=== PATIENT | female | born 1965 | race Caucasian/White ===

== ENCOUNTER 2018-02-28 18:31 | Inpatient (IN) | payer BC, OTHER ==
[~2018-02-28] VITALS: Ht 157.5 cm; Wt 39.1 kg
[2018-02-28] MEDS ORDERED: methylPREDNISolone SOD SUCC 125 MG/2 ML VL IV ONE (21:15)
[2018-02-28] MEDS ORDERED: ALBUTEROL SULF 2.5 MG/0.5ML(0.5%) NEB SOLN NEB ONE (21:15)
[2018-02-28] MEDS ORDERED: IPRATROPIUM BROM 0.5 MG/2.5ML INH SOL NEB ONE (21:15)
[2018-02-28] MEDS ORDERED: cefTRIAXone 1GM/10ml IVPUSH 10 ML IV ONE (21:15)
[2018-02-28] MEDS: MAGNESIUM SULFATE 1GM/100ML 100 ML IV SCH ×2 (21:15→23:00)
[2018-02-28 21:27] LABS: Basophils # (auto) 0.1 uL; Basophils % (auto) 1.2 % (0.0-2.0); Eosinophils # (auto) 0.4 uL; Eosinophils % (auto) 4.8 % (0.0-7.0); Hematocrit 46.6 % (36.0-46.0); Hemoglobin 15.7 g/dL (12.2-16.2); Lymphocytes # (auto) 1.8 uL; Lymphocytes % (auto) 20.8 % (10.0-50.0); Mean Corpuscular Hemoglobin 33.6 pg (28.0-32.0); Mean Corpuscular Hgb Conc. 33.7 g/dL (32.0-36.0); Mean Corpuscular Volume 99.7 fL (80.0-100.0); Monocytes # (auto) 0.7 uL; Monocytes % (auto) 8.1 % (0.0-12.0); Neutrophils # (auto) 5.8 uL; Neutrophils % (auto) 65.1 % (37.0-80.0); Nucleated Red Blood Cells % 0.1 %; Platelet Count (auto) 222 10^3/uL (140-450); Red Blood Cells 4.67 10^6/uL (4.0-5.20); Red Cell Distribution Width 14.3 % (11.8-14.3); White Blood Cell 8.9 10^3/uL (4.4-10.8)
[2018-02-28 21:37] LABS: Urine Bacteria FEW /hpf (None Seen); Urine Blood Negative /uL (Negative); Urine Specific Gravity 1.003 (1.001-1.035); Urine WBC 3 /hpf (0 - 5)
[2018-02-28 21:46] LABS: Albumin 3.5 g/dL (3.4-5.0); BUN/Creatinine Ratio 11.9; Calcium 8.8 mg/dL (8.5-10.1); Potassium 3.8 mmol/L (3.5-5.1)
[2018-02-28 21:48] LABS: Bilirubin, Total 2.5 mg/dL (0.2-1.0); Total Protein 6.9 g/dL (6.4-8.2)
[2018-02-28] MEDS ORDERED: LEVOFLOXACIN 750MG 150 ML IV ONE (22:15)
[2018-03-01] VITALS (7 sets, daily range): BP systolic 93–123; BP diastolic 57–74
[2018-03-01] MEDS ORDERED: ONDANSETRON HCL 4 MG/2 ML VIAL IV PRN (02:00)
[2018-03-01] MEDS ORDERED: ACETAMINOPHEN 500 MG TAB PO PRN (02:00)
[2018-03-01] MEDS ORDERED: FUROSEMIDE 20 MG/2 ML VIAL IV ONE (02:00)
[2018-03-01] MEDS ORDERED: HYDROcodone-ACET 5/325MG TAB PO PRN (02:00)
[2018-03-01 08:40] LABS: Basophils # (auto) 0 uL; Eosinophils # (auto) 0 uL; Hematocrit 43.9 % (36.0-46.0); Hemoglobin 14.9 g/dL (12.2-16.2); Lymphocytes # (auto) 0.4 uL; Lymphocytes % (auto) 5.5 % (10.0-50.0); Mean Corpuscular Hemoglobin 33.3 pg (28.0-32.0); Mean Corpuscular Hgb Conc. 33.8 g/dL (32.0-36.0); Mean Corpuscular Volume 98.3 fL (80.0-100.0); Monocytes # (auto) 0.1 uL; Monocytes % (auto) 1.5 % (0.0-12.0); Platelet Count (auto) 213 10^3/uL (140-450); Red Blood Cells 4.46 10^6/uL (4.0-5.20); Red Cell Distribution Width 14.2 % (11.8-14.3); White Blood Cell 7.6 10^3/uL (4.4-10.8)
[2018-03-01 08:59] LABS: BUN/Creatinine Ratio 15.3; Calcium 8.6 mg/dL (8.5-10.1); Potassium 3.6 mmol/L (3.5-5.1)
[2018-03-01] MEDS ORDERED: FUROSEMIDE 20 MG/2 ML VIAL IV SCH (10:00)
[2018-03-01] MEDS ORDERED: cefTRIAXone 1GM/10ml IVPUSH 10 ML IV ONE (13:45)
[2018-03-01] MEDS ORDERED: DOBUTamine 1000MCG/ML 250 ML IV SCH (16:30)
[2018-03-01] MEDS ORDERED: AZITHROMYCIN 250 MG TAB PO ONE (17:00)
[2018-03-01] MEDS: FUROSEMIDE 20 MG/2 ML VIAL IV SCH (22:00)
[2018-03-02] VITALS: BP 94/58
[2018-03-02 02:00] VITALS: BP 92/54
[2018-03-02 04:00] VITALS: BP 91/58
[2018-03-02 08:00] VITALS: BP 105/65
[2018-03-02] MEDS: FUROSEMIDE 20 MG/2 ML VIAL IV SCH ×2 (09:47→21:55)
[2018-03-02] MEDS: cefTRIAXone 1GM/10ml IVPUSH 10 ML IV SCH (09:51)
[2018-03-02] MEDS ORDERED: AZITHROMYCIN 250 MG TAB PO SCH (10:00)
[2018-03-02] MEDS ORDERED: FUROSEMIDE 20 MG TAB PO SCH (10:00)
[2018-03-02] MEDS ORDERED: DOBUTamine 1000MCG/ML 250 ML IV SCH (13:00)
[2018-03-02 15:39] VITALS: BP 104/65
[2018-03-02 19:49] VITALS: BP 115/84
[2018-03-03] VITALS (7 sets, daily range): BP systolic 91–117; BP diastolic 51–78
[2018-03-03] MEDS ORDERED: ADENOSINE 36 MG in GIVE UN-DILUTED 0 ML IV STA (08:28)
[2018-03-03] MEDS: cefTRIAXone 1GM/10ml IVPUSH 10 ML IV SCH (09:00)
[2018-03-03] MEDS: FUROSEMIDE 20 MG/2 ML VIAL IV SCH (12:48)
[2018-03-03] MEDS: SPIRONOLACTONE 25 MG TAB PO SCH ×2 (18:00→19:00)
[2018-03-04] MEDS: SPIRONOLACTONE 25 MG TAB PO SCH ×2 (05:57→17:19)
[2018-03-04 09:00] VITALS: BP 105/64
[2018-03-04] MEDS: FUROSEMIDE 20 MG TAB PO SCH (10:39)
[2018-03-04] MEDS: DIGOXIN 0.125 MG TAB PO SCH (10:40)
[2018-03-04 13:00] VITALS: BP 102/54
[2018-03-04] MEDS: Ensure Enlive Vanilla 8oz Bottle PO SCH (17:19)
[2018-03-04 21:58] VITALS: BP 104/69
[2018-03-05 05:33] VITALS: BP 93/60
[2018-03-05] MEDS: SPIRONOLACTONE 25 MG TAB PO SCH (05:33)
[2018-03-05 09:00] VITALS: BP 100/62
[2018-03-05] MEDS: DIGOXIN 0.125 MG TAB PO SCH (09:22)
[2018-03-05] MEDS: FUROSEMIDE 20 MG TAB PO SCH (09:23)
[2018-03-05] MEDS: Ensure Enlive Vanilla 8oz Bottle PO SCH ×2 (09:23→12:00)
[2018-03-05 10:29] VITALS: BP 94/54
== END 2018-03-05 13:12 | disposition home health service (06) | DRG 291 ==
LOC: ER 18:31 → TELE 18:32 → DOU IN ICU 03-01 04:27 → TELE-EAST 03-01 04:59 → DOU IN ICU 03-01 18:56 → TELE-EAST 03-03 22:25
PROVIDERS: ADMIT Nurse Practitioner Family; ATTEND Family Medicine
DX: I11.0 Hypertensive heart disease with heart failure (principal); J18.9 Pneumonia, unspecified organism; N39.0 Urinary tract infection, site not specified; I50.43 Acute on chronic combined systolic (congestive) and diastolic (congestive) heart failure; I42.9 Cardiomyopathy, unspecified; I08.0 Rheumatic disorders of both mitral and aortic valves; E04.1 Nontoxic single thyroid nodule; I44.1 Atrioventricular block, second degree; I95.9 Hypotension, unspecified; F17.210 Nicotine dependence, cigarettes, uncomplicated; Z85.71 Personal history of Hodgkin lymphoma; Z92.21 Personal history of antineoplastic chemotherapy; Z92.3 Personal history of irradiation; Z95.0 Presence of cardiac pacemaker; Z82.5 Family history of asthma and other chronic lower respiratory diseases; Z82.49 Family history of ischemic heart disease and other diseases of the circulatory system; Z71.6 Tobacco abuse counseling
CPT/HCPCS: 36415; 71046; 71250; 74176; 78452; 80048; 80053; 81001; 83880; 84443; 84484; 85025; 87081; 93005; 93017; 93306; 94640; 96365; 96375; J0153; J0696; J1956

== ENCOUNTER 2018-12-08 06:47 | Emergency (ER) | payer BC, MEDICAID ==
[~2018-12-08] VITALS: Ht 157.5 cm; Wt 37.2 kg
[2018-12-08] MEDS ORDERED: LIDOCAINE 1% HCL (LOCAL ANESTH.) INJ 20ML MDV IJ ONE (08:45)
[2018-12-08 08:55] VITALS: BP 112/75
[2018-12-08] MEDS ORDERED: ACETAMINOPHEN 325 MG TAB PO ONE (09:00)
[2018-12-08] MEDS ORDERED: TETANUS-DIPTH-ACEL PERTUSSIS 0.5ML SYRG IM ONE (09:00)
[2018-12-08] MEDS ORDERED: cefTRIAXone SOD 1,000 MG VL IM ONE (09:15)
== END 2018-12-08 09:57 | disposition home or self-care (01) ==
LOC: ER 06:47 → EDBD 06:47 → ER 09:56
DX: S02.32XA Fracture of orbital floor, left side, initial encounter for closed fracture (principal); S01.412A Laceration without foreign body of left cheek and temporomandibular area, initial encounter; F17.210 Nicotine dependence, cigarettes, uncomplicated; Y04.2XXA Assault by strike against or bumped into by another person, initial encounter; Y93.89 Activity, other specified; Y92.098 Other place in other non-institutional residence as the place of occurrence of the external cause; Y99.8 Other external cause status
CPT/HCPCS: 12013; 70450; 70486; 71101; 72125; 90471; 90715; 96372; 99284; J0696; J2001

== ENCOUNTER 2019-01-13 08:51 | Emergency (ER) | payer MEDICAID ==
[~2019-01-13] VITALS: Ht 157.5 cm; Wt 35.9 kg
[2019-01-13 10:16] LABS: Basophils # (auto) 0 uL; Basophils % (auto) 0.7 % (0.0-2.0); Eosinophils # (auto) 0 uL; Eosinophils % (auto) 0.7 % (0.0-7.0); Hematocrit 45.4 % (36.0-46.0); Hemoglobin 14.9 g/dL (12.2-16.2); Lymphocytes # (auto) 1.5 uL; Lymphocytes % (auto) 24.7 % (10.0-50.0); Mean Corpuscular Hemoglobin 32.1 pg (28.0-32.0); Mean Corpuscular Hgb Conc. 32.8 g/dL (32.0-36.0); Mean Corpuscular Volume 97.7 fL (80.0-100.0); Monocytes # (auto) 0.4 uL; Monocytes % (auto) 6.6 % (0.0-12.0); Neutrophils # (auto) 4.1 uL; Neutrophils % (auto) 67.3 % (37.0-80.0); Nucleated Red Blood Cells % 0.2 %; Platelet Count (auto) 190 10^3/uL (140-450); Red Blood Cells 4.65 10^6/uL (4.0-5.20); Red Cell Distribution Width 15.4 % (11.8-14.3); White Blood Cell 6.1 10^3/uL (4.4-10.8)
[2019-01-13 10:32] LABS: INR 1.22 (0.9-1.15); Partial Thromboplastin Time 26.5 sec (23.64-32.05)
[2019-01-13 10:40] LABS: Albumin 3.1 g/dL (3.4-5.0); Calcium 9.2 mg/dL (8.5-10.1); Potassium 3.5 mmol/L (3.5-5.1)
[2019-01-13 10:44] LABS: BUN/Creatinine Ratio 24.4; Bilirubin, Total 4.1 mg/dL (0.2-1.0); Total Protein 6.6 g/dL (6.4-8.2)
[2019-01-13] MEDS ORDERED: FUROSEMIDE 20 MG/2 ML VIAL IV ONE (11:00)
[2019-01-13 11:32] LABS: Urine Bacteria FEW /hpf (None Seen); Urine Blood Negative /uL (Negative); Urine Mucus FEW (None Seen); Urine Specific Gravity 1.012 (1.001-1.035); Urine WBC 1 /hpf (0 - 5)
[2019-01-13 12:29] VITALS: BP 110/73
== END 2019-01-13 13:52 | disposition home or self-care (01) ==
LOC: ER 08:57
DX: I50.9 Heart failure, unspecified (principal); F17.210 Nicotine dependence, cigarettes, uncomplicated; Z95.0 Presence of cardiac pacemaker; T14.8XXA Other injury of unspecified body region, initial encounter; X58.XXXA Exposure to other specified factors, initial encounter; Y93.89 Activity, other specified; Y92.89 Other specified places as the place of occurrence of the external cause; Y99.8 Other external cause status
CPT/HCPCS: 36415; 71045; 80053; 81001; 83880; 85025; 85610; 85730; 93005; 96374; 99284; J1940; J7030

== ENCOUNTER 2019-02-23 01:55 | Inpatient (IN) | payer MEDICAID, OTHER ==
[~2019-02-23] VITALS: Ht 152.4 cm; Wt 42.7 kg
[2019-02-23] VITALS (75 sets, daily range): BP systolic 81–129; BP diastolic 48–70
[2019-02-23] MEDS ORDERED: SUCCINYLCHOLINE CHLORIDE 20 MG/ML 10ML VIAL IV ONE ×2 (02:13→02:15)
[2019-02-23] MEDS ORDERED: ETOMIDATE (2MG/ML) 20ML VIAL IV ONE ×2 (02:13→02:15)
[2019-02-23] MEDS ORDERED: methylPREDNISolone SOD SUCC 125 MG/2 ML VL IV ONE (02:15)
[2019-02-23] MEDS ORDERED: PROPOFOL 100 ML IV ONE (02:24)
[2019-02-23 02:28] LABS: Basophils # (auto) 0.2 uL; Basophils % (auto) 1.5 % (0.0-2.0); Eosinophils # (auto) 0 uL; Eosinophils % (auto) 0.1 % (0.0-7.0); Hematocrit 44.1 % (36.0-46.0); Hemoglobin 14.5 g/dL (12.2-16.2); Lymphocytes # (auto) 3.3 uL; Mean Corpuscular Hemoglobin 31.5 pg (28.0-32.0); Mean Corpuscular Hgb Conc. 32.9 g/dL (32.0-36.0); Mean Corpuscular Volume 95.8 fL (80.0-100.0); Monocytes # (auto) 0.6 uL; Monocytes % (auto) 5.6 % (0.0-12.0); Neutrophils # (auto) 7.3 uL; Neutrophils % (auto) 63.8 % (37.0-80.0); Nucleated Red Blood Cells % 0.8 %; Platelet Count (auto) 302 10^3/uL (140-450); Red Blood Cells 4.61 10^6/uL (4.0-5.20); Red Cell Distribution Width 17.3 % (11.8-14.3); White Blood Cell 11.5 10^3/uL (4.4-10.8)
[2019-02-23] MEDS: PROPOFOL 100 ML IV SCH ×2 (02:30→10:04)
[2019-02-23 02:46] LABS: Albumin 3.2 g/dL (3.4-5.0); BUN/Creatinine Ratio 29.4; Calcium 9.1 mg/dL (8.5-10.1); Magnesium 2.9 mg/dL (1.6-2.6); Potassium 4.7 mmol/L (3.5-5.1)
[2019-02-23 02:51] LABS: Bilirubin, Total 2.5 mg/dL (0.2-1.0); Total Protein 8.2 g/dL (6.4-8.2)
[2019-02-23 02:52] LABS: Lactic Acid w/Reflex 8.7 mmol/L (0.4-2.0)
[2019-02-23 04:03] LABS: Urine Amorphous Crystal FEW /hpf (None Seen); Urine Bacteria FEW /hpf (None Seen); Urine Blood TRACE /uL (Negative); Urine Hyaline Cast FEW /lpf (0 - 2); Urine Mucus FEW (None Seen); Urine Specific Gravity 1.028 (1.001-1.035); Urine WBC 4 /hpf (0 - 5)
[2019-02-23] MEDS ORDERED: NOREPINEPHRINE 8 MG/250ML KIT 250 ML IV ONE (04:35)
[2019-02-23] MEDS: NOREPINEPHRINE 8 MG/250ML KIT 250 ML IV SCH (04:45)
[2019-02-23] MEDS ORDERED: PIPERACILLIN-TAZOB 3.375GM 100 ML IV ONE (04:45)
[2019-02-23] MEDS ORDERED: VANCOMYCIN 1GM/250ML 250 ML IV ONE (04:45)
[2019-02-23] MEDS ORDERED: FUROSEMIDE 20 MG/2 ML VIAL IV ONE (04:45)
[2019-02-23] MEDS ORDERED: SODIUM CHLORIDE 0.9% 500 ML IV ONE (04:45)
[2019-02-23] MEDS ORDERED: SODIUM CHLORIDE 0.9% 1,000 ML IV ONE (04:45)
[2019-02-23] MEDS ORDERED: MORPHINE SULF INJ 2 MG/ML SYRINGE 1ML IV PRN (05:30)
[2019-02-23] MEDS ORDERED: ENOXAPARIN SOD 40 MG/0.4 ML SYRINGE SC ONE (05:30)
[2019-02-23] MEDS ORDERED: NITROGLYCERIN 0.4 MG SL TAB SL PRN (05:30)
[2019-02-23] MEDS: ALBUTEROL SULF 2.5 MG/0.5ML(0.5%) NEB SOLN NEB SCH ×3 (06:00→18:50)
[2019-02-23] MEDS: IPRATROPIUM BROM 0.5 MG/2.5ML INH SOL NEB SCH ×3 (06:00→18:50)
--- NOTE | 2019-02-23 06:46 | NUR ---
Pt being admitted to ICU ROBERTKAVYA admitted to ICU via gurney on radiation monitor, and portable 02. Patient transfered to bed, connected to ICU monitoring and oxygen, and weighed by bedscale. Patient oriented to YULIET DIGGS RN primary RN, unit, room, bed, and unit policies regarding patient care and visiting hours.
--- NOTE | 2019-02-23 08:30 | NUR ---
UNABLE TO COMPLETE ADMISSION IN IT'S ENTIRETY DUE TO PATIENT BEING INTUBATED AND SEDATED AND HAS NO FAMILY AT THIS TIME.
--- NOTE | 2019-02-23 08:50 | NUR ---
PATIENT WENT TO CT SCAN.
--- NOTE | 2019-02-23 08:50 | NUR ---
RT Transport Note: Patient transported to ct with GEO Jc Patient transported to and from procedure on ventilator with previous ordered settings. Patient on cardiac cath lab technologist with alarms set and audible, ambu-bag/mask connected to 02 tank. Patient returned to room with no adverse reaction noted. Transport completed without incident.
--- NOTE | 2019-02-23 09:16 | NUR ---
PATIENT RETURNED FROM CT SCAN.
[2019-02-23 09:31] LABS: Lactic Acid w/Reflex 3.6 mmol/L (0.4-2.0)
--- NOTE | 2019-02-23 09:50 | NUR ---
DR. DO HERE TO SEE PATIENT. SEE MD NOTES AND EMR FOR NEW ORDER.
[2019-02-23] MEDS ORDERED: cefTRIAXone 1GM/50ML D5W 50 ML IV SCH (10:00)
[2019-02-23] MEDS ORDERED: AZITHROMYCIN 500MG/ 250ML 250 ML IV SCH (10:00)
[2019-02-23] MEDS ORDERED: VANCOMYCIN PER PHARMACY 0 MG IV SCH (10:15)
--- NOTE | 2019-02-23 10:30 | NUR ---
ULTRASOUND BEING DONE. SEE REPORT.
--- NOTE | 2019-02-23 11:00 | NUR ---
2 D ECHO BEING DONE. SEE REPORT.
[2019-02-23 11:45] LABS: INR 1.2 (0.9-1.15); Partial Thromboplastin Time 30.9 sec (23.64-32.05)
--- NOTE | 2019-02-23 12:00 | NUR ---
DR. GARCIA HERE TO SEE PATIENT. SEE MD NOTES ANF EMR FOR ANY NEW ORDERS.
[2019-02-23] MEDS: PIPERACILLIN-TAZOB 3.375GM 100 ML IV SCH ×2 (13:05→17:11)
--- NOTE | 2019-02-23 13:40 | NUR ---
THORACENTESIS BEING DONE AT THIS TIME.
--- NOTE | 2019-02-23 14:17 | NUR ---
550 ML DARK COLA COLORED FLUID OBTAINED FROM THORACENTESIS. FLUID TAKEN TO LAB FOR ANALYSIS.
--- NOTE | 2019-02-23 16:08 | NUR ---
PICC line placement Patient/Patient significant other educated on need for PICC line placement. All risks and benefits explained and all questions and concerns addressed prior to procedure. Noted past medical history and allergies with no contraindications. INR and Plt counts within acceptable range. 5 fr PICC line inserted via RIGHT BASILIC vein using [employer]'s [employer] US and Tip Location System. Sterile technique with maximum barrier precautions utilized. Blood return obtained from each of 3 lumens and each flushed easily with NS using proper technique. PICC secured with Stat-lock; biodisc and occlusive dressing applied. Stat portable chest x-ray obtained for PICC tip placement. *Baseline Arm Circumference 17CM. *INTERNAL LENGHT 36CM *EXTERNAL LENGHT 0 CM *PICC lot # [id number]. Note:
[2019-02-23] MEDS ORDERED: LIDOCAINE 1% (LOCAL ANESTH.) PF 5ml SDV ID ONE (16:15)
[2019-02-23 16:23] LABS: Alcohol, Urine < 3.0 mg/dL (0-5); Amphetamine Screen, Urine NEGATIVE (NEGATIVE); Barbiturate Scree,Urine NEGATIVE (NEGATIVE); Benzodiazephine Screen, Urine NEGATIVE (NEGATIVE); Cannabinoid Screen, Urine NEGATIVE (NEGATIVE); Cocaine Screen, Urine NEGATIVE (NEGATIVE); Opiate Scree,Urine NEGATIVE (NEGATIVE); Phencyclidine Screen, Urine NEGATIVE (NEGATIVE)
--- NOTE | 2019-02-23 16:30 | NUR ---
DR. KIMBALL DID LEFT SIDE THORACENTESES AND RECIEVED 880 ML DARK COLORED PLURAL FLUID. PLURAL FLUID SENT TO LAB FOR TESTS. SEE RESULTS.
--- NOTE | 2019-02-23 16:45 | NUR ---
OK to use PICC line Xray completed. OK to use PICC line. PRIMARY RN NOTIFIED
[2019-02-23] MEDS: FUROSEMIDE 40 MG/4 ML VIAL IV SCH (18:11)
[2019-02-23 18:24] LABS: Cholesterol 102 mg/dL (< 200)
[2019-02-23 18:26] LABS: HDL Cholesterol 34 mg/dL (40-59); LDL Cholesterol 63 mg/dL (< 100); Triglycerides 76 mg/dL (< 150)
[2019-02-23] MEDS: MIDAZOLAM DRIP 50 mg/50mL 50 ML IV SCH (20:13)
[2019-02-23] MEDS: FAMOTIDINE (10MG/ML) 2ML VL IV SCH (22:57)
[2019-02-23] MEDS: SODIUM CHLOR 0.9% PF (SALINE LOCK) 10ML VIAL/SYR IV SCH (22:58)
[2019-02-24] VITALS (101 sets, daily range): BP systolic 81–114; BP diastolic 42–87
[2019-02-24] MEDS: PIPERACILLIN-TAZOB 3.375GM 100 ML IV SCH ×4 (01:05→17:10)
[2019-02-24] MEDS: FAMOTIDINE (10MG/ML) 2ML VL IV SCH ×2 (01:07→22:41)
--- NOTE | 2019-02-24 03:12 | NUR ---
HYGIENE BED BATH PROVIDED, full NETTA CHANGE PROVIDED. PT TOLERATED CARE. VS STABLE
[2019-02-24] MEDS: NOREPINEPHRINE 8 MG/250ML KIT 250 ML IV SCH (04:33)
[2019-02-24 04:40] LABS: Potassium 3.6 mmol/L (3.5-5.1)
[2019-02-24 04:45] LABS: Albumin 2.3 g/dL (3.4-5.0); BUN/Creatinine Ratio 39.3; Bilirubin, Total 1.4 mg/dL (0.2-1.0); Calcium 8.3 mg/dL (8.5-10.1)
[2019-02-24] MEDS: MIDAZOLAM DRIP 50 mg/50mL 50 ML IV SCH (05:26)
[2019-02-24] MEDS: FUROSEMIDE 40 MG/4 ML VIAL IV SCH ×2 (05:58→17:09)
[2019-02-24] MEDS: IPRATROPIUM BROM 0.5 MG/2.5ML INH SOL NEB SCH ×3 (06:20→18:22)
[2019-02-24] MEDS: ALBUTEROL SULF 2.5 MG/0.5ML(0.5%) NEB SOLN NEB SCH ×3 (06:20→18:22)
--- NOTE | 2019-02-24 08:50 | NUR ---
CPAP TRIAL STARTED.
--- NOTE | 2019-02-24 08:50 | NUR ---
Respiratory note: CPAP TRIAL INITIATED, PATIENT IS ABLE TO FOLLOW COMMANDS. PATIENT IS ON CPAP PSV 7, PEER +5, IO2 30%. PATIENT IS TOLERATING CPAP TRIAL AT THE MOMENT. HR 91, SPO2 100%, RR 21, VT 372. GEO HORVATH IS AT BEDSIDE AND IS AWARE.
[2019-02-24] MEDS: DexMEDEtomidine 400 MCG in D5W 5% 96 ML IV SCH (09:21)
--- NOTE | 2019-02-24 09:23 | NUR ---
Respiratory note: PATIENT TAKEN OFF OF CPAP TRIAL AND PLACED ON PREVIOUS SETTINGS OF AC 14/400/+5/30%. CPAP TRIAL STOPPED DUE TO PATIENT'S RR INCREASING TO 53, SP02 DECREASING, AND HR INCREASING. GEO HORVATH IS AWARE AND DR. BARNES IS AWARE WELL. WILL TRY AGAIN AT A LATER TIME.
--- NOTE | 2019-02-24 09:23 | NUR ---
PATIENT NOT TOLERATING CPAP TRIAL, RESPIRATIONS 53, HR 110 AND SATURATION DECREASING. PATIENT PLACED BACK ON AC AND DR. KIMBALL CONTACTED. NEW ORDER FOR PRECIDEX. SEE EMR.
[2019-02-24] MEDS: SODIUM CHLOR 0.9% PF (SALINE LOCK) 10ML VIAL/SYR IV SCH ×2 (10:00→22:22)
[2019-02-24] MEDS: VANCOMYCIN 500 MG in D5W 5% 100 ML IV SCH (10:46)
--- NOTE | 2019-02-24 11:06 | NUR ---
PRECIDEX STARTED, DIPRIVAN DISCONTINUED.
--- NOTE | 2019-02-24 12:55 | NUR ---
WOUND CARE NOTE: IN TO SEE PATIENT AT THIS TIME FOR SKIN INTEGRITY MONITORING. [facility] WITH DIAGNOSIS OF ACUTE RESPIRATORY FAILURE. SHE IS INTUBATED, LIGHTLY SEDATED. CURRENT JESSIE SCORE IS 12. PATIENT IS VERY THIN, WEIGHING ONLY 37.1 KG. SHE IS NOTED TO BE WOUND FREE AT THIS TIME. VERY PROMINENT BONY PROMINENCES NOTED. SKIN PINK, BLANCHABLE. RECOMMEND: SKIN/WOUND CARE PLAN, FREQUENT TURN SCHEDULE Q 2 HOURS,PRN CONDITION PERMITS, WITH PRESSURE REDISTRIBUTION USING PILLOWS/WEDGES, BID/PRN APPLICATION WITH MOISTURE BARRIER CREAM, OPTIFOAM GENTLE SACRAL DRESSING PREVENTATIVE, DIETARY CONSULT FOR LOW JESSIE, CONTINUED MONITORING BY WOUND CARE TEAM.
--- NOTE | 2019-02-24 16:58 | NUR ---
PATIENT PLACED ON CONTACT ISOLATION DUE TO MRSA IN NARES.
--- NOTE | 2019-02-24 20:39 | NUR ---
PT ON PRECEDEX MAXED. WOKE UP AND TRIED PULLING ETT OUT .MEDICATED WITH MORPHINE AND STILL REMAINED VERY AGITATED. RESTARTED DIPRIVAN . PT CALM AT THIS TIME.
[2019-02-25] VITALS (85 sets, daily range): BP systolic 80–127; BP diastolic 40–74
[2019-02-25] MEDS: PIPERACILLIN-TAZOB 3.375GM 100 ML IV SCH ×4 (00:58→18:05)
[2019-02-25] MEDS: PROPOFOL 100 ML IV SCH (02:15)
[2019-02-25 04:24] LABS: Basophils # (auto) 0.1 uL; Basophils % (auto) 1.2 % (0.0-2.0); Eosinophils # (auto) 0 uL; Eosinophils % (auto) 0.2 % (0.0-7.0); Hematocrit 42.4 % (36.0-46.0); Lymphocytes % (auto) 17.8 % (10.0-50.0); Mean Corpuscular Hemoglobin 31.3 pg (28.0-32.0); Mean Corpuscular Hgb Conc. 33.1 g/dL (32.0-36.0); Mean Corpuscular Volume 94.7 fL (80.0-100.0); Monocytes # (auto) 0.8 uL; Monocytes % (auto) 7.3 % (0.0-12.0); Neutrophils # (auto) 8.4 uL; Neutrophils % (auto) 73.5 % (37.0-80.0); Nucleated Red Blood Cells % 0.7 %; Platelet Count (auto) 212 10^3/uL (140-450); Red Blood Cells 4.47 10^6/uL (4.0-5.20); Red Cell Distribution Width 16.8 % (11.8-14.3); White Blood Cell 11.4 10^3/uL (4.4-10.8)
[2019-02-25] MEDS: NOREPINEPHRINE 8 MG/250ML KIT 250 ML IV SCH ×2 (04:33→18:27)
[2019-02-25 04:59] LABS: Potassium 2.6 mmol/L (3.5-5.1); Sodium 140 mmol/L (136-145)
[2019-02-25 05:00] LABS: Alanine Aminotransferase 54 U/L (13-56); Albumin 2.4 g/dL (3.4-5.0); Alkaline Phosphatase 101 U/L (45-117); Anion Gap 7 (5-15); Aspartate Aminotransferase 61 U/L (15-37); BUN/Creatinine Ratio 25.6; Bilirubin, Total 1.6 mg/dL (0.2-1.0); Blood Urea Nitrogen 20 mg/dL (7-18); Calcium 8.2 mg/dL (8.5-10.1); Carbon Dioxide 36 mmol/L (21-32); Chloride 97 mmol/L (98-107); GFR African American 100 mL/min; GFR Non-African American 82 mL/min; Glucose 133 mg/dL (74-106); Total Protein 6.5 g/dL (6.4-8.2)
[2019-02-25] MEDS: MIDAZOLAM DRIP 50 mg/50mL 50 ML IV SCH (05:26)
[2019-02-25] MEDS: ALBUTEROL SULF 2.5 MG/0.5ML(0.5%) NEB SOLN NEB SCH ×3 (06:36→18:31)
[2019-02-25] MEDS: IPRATROPIUM BROM 0.5 MG/2.5ML INH SOL NEB SCH ×3 (06:36→18:31)
--- NOTE | 2019-02-25 07:45 | NUR ---
OPENING Report received from Timi GUARDADO. Care initiated and initial assessment completed.
[2019-02-25] MEDS: FAMOTIDINE (10MG/ML) 2ML VL IV SCH ×2 (09:04→22:22)
[2019-02-25] MEDS: POTASSIUM CHL 20MEQ/100ML 100 ML IV SCH ×2 (09:05→10:17)
[2019-02-25] MEDS: VANCOMYCIN 500 MG in D5W 5% 100 ML IV SCH (09:06)
[2019-02-25] MEDS: DexMEDEtomidine 400 MCG in D5W 5% 96 ML IV SCH (09:21)
--- NOTE | 2019-02-25 09:21 | NUR ---
Respiratory note: VENT CHANGE RR FROM [address] ESCOBAR. ABG TO FOLLOW.
--- NOTE | 2019-02-25 09:32 | NUR ---
BEDSIDE Dr. Ramirez bedside. New orders received.
[2019-02-25] MEDS: SODIUM CHLOR 0.9% PF (SALINE LOCK) 10ML VIAL/SYR IV SCH ×2 (10:00→22:22)
--- NOTE | 2019-02-25 11:17 | NUR ---
NUTRITION CONSULT/ASSESSMENT NOTES Please refer to link notes of nutrition screen form filed under the intervention section of the plan of care for further details. Est. Needs based on IBW (45 kg): 1150 kcal to 1350 kcal (25-30 kcal/kgIBW), 45 gms to 52 gms pro (1.0-1.3 gms/kgIBW d/t severe hypoalbuminemia). Will continue to monitor pertinent labs and reassess nutrient need prn Thank you for this consult. Addendum: 02/25/19 at [address] Amended: Links added.
--- NOTE | 2019-02-25 12:35 | NUR ---
BEDSIDE Dr. Pastrana bedside. New orders received.
[2019-02-25 12:55] LABS: BUN/Creatinine Ratio 25.7; Calcium 8.5 mg/dL (8.5-10.1); Potassium 3.8 mmol/L (3.5-5.1)
--- NOTE | 2019-02-25 13:26 | NUR ---
SPOKE TO Spoke to Dr. Ramirez in regards to doctor consent.
--- NOTE | 2019-02-25 13:35 | NUR ---
THORACENTESIS Thoracentesis done at the bedside to the right side. 250ml pleural fluid removed and sent to lab. Patient tolerated well.
--- NOTE | 2019-02-25 15:30 | NUR ---
Respiratory note CPAP TRIAL INITIATED. HR 83 RR 23 BP 124/72 SPO2 100%. ABG TO FOLLOW.
--- NOTE | 2019-02-25 15:30 | NUR ---
CPAP Patient placed on CPAP trial by RT.
--- NOTE | 2019-02-25 16:40 | NUR ---
SPOKE TO Updated Dr. Pastrana on labs. New orders received.
--- NOTE | 2019-02-25 16:46 | NUR ---
EXTUBATED Patient extubated. Cool mask applied. Patient tolerated well. No stridor noted.
[2019-02-25] MEDS: FUROSEMIDE 40 MG/4 ML VIAL IV SCH ×2 (18:06→18:09)
--- NOTE | 2019-02-25 19:25 | NUR ---
ADMITTED WITH RESPIRATORY DISTRESS. BIPAP PROGRESSED TO INTUBATION. EXTUBATED TODAY. CURRENTLY ON COOL MIST 30%. RASPY VOICE. LEFT NARE NGT CLAMPED. MARQUEZ IN PLACE. LIBBY PICC LINE, REJ, LEFT 20G AND RIGHT 20G PERIPHERAL IV. + MRSA NARES. CONTACT ISOLATION. HOB ELEVATED. RESTING
--- NOTE | 2019-02-25 19:25 | NUR ---
CLOSING Report given to Taisha GUARDADO.
--- NOTE | 2019-02-25 20:00 | NUR ---
ALERT. ORIENTED. TAKING OFF COOL MIST MASK CONTINUOUSLY. FILIBERTO. WHISPERY VOICE TALKING SLOWLY ONE WORD AT A TIME. LUNGS CLEAR. COARSE COUGH. NONPRODUCTIVE COUGH. ON 30% COOL MIST MASK. RR 20. ABDOMEN SOFT AND FLAT. LEFT NARE NGT CLAMPED. POSITION CHECKED. NO RESIDUAL. NO BM. PREVENTIVE OPTIFOAM ON COCCYX. NO PERIPHERAL EDEMA. ALL EXTREMITIES WARM. REPOSITIONED TO HER RIGHT SIDE. 100% V PACED RATE 102.
--- NOTE | 2019-02-25 22:00 | NUR ---
REPOSITIONED. 100% V PACED AT A RATE OF 102. WHISPERY VOICE. ORIENTED. SPEECH IS SLOW ONE WORD AT A TIME. IVS PATENT. NO REDNESS OR SWELLING AT THE SITES OF ALL THE IVS. NO EDEMA. ALL EXTREMITIES ARE WARM AND DRY.
[2019-02-26] VITALS (40 sets, daily range): BP systolic 81–119; BP diastolic 41–80
--- NOTE | 2019-02-26 | NUR ---
PATIENT REMOVED ONE OF HER IVS AND NGT. ORIENTED TO HER NAME , YEAR, PRESIDENT. WHEN SHE LOOKED AT HER MONITOR SHE STATED: " I HAVE NO HEART RATE". EXPLAINED THE MONITOR AND ALL HER NUMBERS. SHE STATED:" I ONLY SEE 2 NUMBERS.". FOLLOWS COMMANDS. HELPS TURN HERSELF IN BED. REMOVED ALL THE PERIPHERAL IVS. PICC LINE REMAINS. WILL NOT REPLACE NGT. PATIENT IS ASKING FOR FOOD . I EXPLAINED WHAT USUALLY HAPPENS POST EXTUBATION REGARDING EATING. LUNGS CLEAR. 2LNP.NO EDEMA. NO SKIN ISSUES. 100% V PACED
--- NOTE | 2019-02-26 01:49 | NUR ---
PATIENT PULLED OFF HER LEADS, REMOVED THE MITTENS AND SOMEHOW GOT HER NOSE BLOODY. PILLOWS ON THE FLOOR. OXYGEN OFF. PLACED HER LEADS BACK ON, OXYGEN BACK ON, MITTENS ON. ALTHOUGH SHE ANSWERS ORIENTATION QUESTIONS CORRECTLY, HER LINE OF REASONING IS OFF. SHE STATED: " I DIDN'T DO THIS, I JUST WANTED SOME THINGS OFF".
[2019-02-26] MEDS: PROPOFOL 100 ML IV SCH (02:15)
--- NOTE | 2019-02-26 02:25 | NUR ---
PRODUCTIVE COUGH OF CLEAR SECRETIONS. OXYGEN MISPLACED. DESATURATION TO 76%. PATIENT HAS BEEN PULLING OFF HER OXYGEN ALL NIGHT. MITTENS ON.
[2019-02-26] MEDS: VANCOMYCIN 500 MG in D5W 5% 100 ML IV SCH (02:48)
--- NOTE | 2019-02-26 03:26 | NUR ---
AM LAB DRAW
[2019-02-26 04:38] LABS: Basophils # (auto) 0.1 uL; Basophils % (auto) 0.7 % (0.0-2.0); Eosinophils # (auto) 0 uL; Eosinophils % (auto) 0.1 % (0.0-7.0); Hematocrit 44.1 % (36.0-46.0); Hemoglobin 14.5 g/dL (12.2-16.2); Lymphocytes # (auto) 0.9 uL; Lymphocytes % (auto) 7.2 % (10.0-50.0); Mean Corpuscular Hgb Conc. 32.8 g/dL (32.0-36.0); Mean Corpuscular Volume 94.4 fL (80.0-100.0); Monocytes # (auto) 0.8 uL; Monocytes % (auto) 6.3 % (0.0-12.0); Neutrophils # (auto) 10.7 uL; Neutrophils % (auto) 85.7 % (37.0-80.0); Nucleated Red Blood Cells % 0.5 %; Platelet Count (auto) 191 10^3/uL (140-450); Red Blood Cells 4.67 10^6/uL (4.0-5.20); Red Cell Distribution Width 16.9 % (11.8-14.3); White Blood Cell 12.5 10^3/uL (4.4-10.8)
--- NOTE | 2019-02-26 04:40 | NUR ---
CHG BATH. PRODUCTIVE COUGH X 4 OF OLD DRY BLOOD. PATIENT INFORMED ME THAT SHE IS NOT FROM A BOARD AND CARE. STATED THAT SHE LIVES WITH HER FATHER. WE TALKED ABOUT HER LOSS OF WEIGHT. SHE BLAMES THE WEIGHT LOSS ON HER NEW DIAGNOSIS OF CHF. SHE STATED THAT SHE IS READY TO EAT. URINE PER MARQUEZ IS A CLEAR YELLOW. 100% V PACED. SBP WITHIN NORMAL LIMITS. REMAINS ON LEVOPHED. PICC LINE APRIL EASILY FOR AM LABS.
[2019-02-26 04:58] LABS: Albumin 2.6 g/dL (3.4-5.0); BUN/Creatinine Ratio 24.3; Bilirubin, Total 2.4 mg/dL (0.2-1.0); Calcium 8.8 mg/dL (8.5-10.1); Total Protein 6.7 g/dL (6.4-8.2)
[2019-02-26 05:09] LABS: Potassium 2.9 mmol/L (3.5-5.1)
--- NOTE | 2019-02-26 05:14 | NUR ---
PAGE FOR HOSPITALIST TO REPORT THE POTASSIUM OF 2.9
[2019-02-26] MEDS: MIDAZOLAM DRIP 50 mg/50mL 50 ML IV SCH (05:26)
[2019-02-26] MEDS ORDERED: POTASSIUM CHL 20MEQ/100ML 100 ML IV ONE (05:52)
--- NOTE | 2019-02-26 06:00 | NUR ---
HAD TO REMIND HER AGAIN TO LEAVE THE PULSE OX AND OXYGEN ON. SHE HAD GOTTEN THE MITTENS OFF. DECREASED THE OXYGEN TO 2L FROM 3L. HER MENTATION AND ABILITY TO HAVE LESS CONFUSED CONVERSATIONS IS IMPROVING. SHE STATED ONCE AGAIN:" I'M NOT TAKING THE OXYGEN OFF". SHE NEEDS REMINDING. SHE HAS PULLED IT OFF AT LEAST 10 TIMES TONIGHT. SHE DOES DESATURATE TO LOW 76. STARTED THE KCL REPLACEMENT. TOTAL OF 40MEQ TO BE GIVEN.
[2019-02-26] MEDS: POTASSIUM CHL 20MEQ/100ML 100 ML IV SCH ×2 (06:22→08:30)
[2019-02-26] MEDS: FUROSEMIDE 40 MG/4 ML VIAL IV SCH ×2 (06:22→18:00)
[2019-02-26] MEDS: PIPERACILLIN-TAZOB 3.375GM 100 ML IV SCH ×4 (06:22→18:00)
[2019-02-26] MEDS: IPRATROPIUM BROM 0.5 MG/2.5ML INH SOL NEB SCH ×3 (08:33→18:56)
[2019-02-26] MEDS: ALBUTEROL SULF 2.5 MG/0.5ML(0.5%) NEB SOLN NEB SCH ×3 (08:33→18:56)
[2019-02-26] MEDS: DexMEDEtomidine 400 MCG in D5W 5% 96 ML IV SCH (09:21)
[2019-02-26] MEDS: FAMOTIDINE (10MG/ML) 2ML VL IV SCH ×2 (11:00→23:40)
[2019-02-26] MEDS: SODIUM CHLOR 0.9% PF (SALINE LOCK) 10ML VIAL/SYR IV SCH ×2 (11:00→22:00)
--- NOTE | 2019-02-26 12:57 | NUR ---
OOB TO CHAIR: Assisted patient into dangling position, able to hold self up without assistance. Patient assisted OOB to chair, required moderate assist with transfer. Patient has difficult time bearing weight, states that she feels very weak and is scared of falling. Reassured patient that she is safe to transfer. Meal tray provided, patient required minimal assistance to prepare meal.
[2019-02-26] MEDS: Ensure Enlive Strawberry 8oz Bottle PO SCH ×2 (13:00→18:00)
--- NOTE | 2019-02-26 14:21 | NUR ---
CARES: Patient's hair tangled, at risk of becoming matted. Hair brushed and secured in bun.
--- NOTE | 2019-02-26 16:40 | NUR ---
VISITOR: Patient's friend Krishan at bedside. Brought phone insurance sales manager from patient's home.
[2019-02-26 18:56] LABS: BUN/Creatinine Ratio 29.1; Calcium 8.6 mg/dL (8.5-10.1); Potassium 3.1 mmol/L (3.5-5.1)
--- NOTE | 2019-02-26 19:28 | NUR ---
HOSPITALIST PAGED; Hospitalist paged regarding low potassium of 3.1, await return call
--- NOTE | 2019-02-26 19:30 | NUR ---
OPENING Report received frOM MONSE GUARDADO. Care initiated and initial assessment completed.
[2019-02-26] MEDS ORDERED: POTASSIUM EFFERVESENT TAB 25 MEQ PO ONE (20:00)
--- NOTE | 2019-02-26 23:00 | NUR ---
BED CANNON PLACED PT ON BEDPAN. PT USED CALL LIGHT TO GET OFF BED CANNON. PT UNABLE TO HAVE A BM. BED CANNON REMOVED.
[2019-02-26] MEDS: MUPIROCIN 2% OINT 15gm or 22gm EACHNOSTRI SCH (23:41)
[2019-02-27] VITALS (13 sets, daily range): BP systolic 81–106; BP diastolic 45–63
--- NOTE | 2019-02-27 01:10 | NUR ---
Hill catheter dc'd Order to discontinue hill catheter. Hill dc'd with clean technique following deflation of balloon. Patient tolerated well with no complaints of pain. Continue care.
--- NOTE | 2019-02-27 03:15 | NUR ---
HYGIENE COMPLETE NETTA CHANGE. SUCTION CANISTERS AND TUBING CHANGED. PT TOLERATED CARE
[2019-02-27 04:18] LABS: Basophils # (auto) 0.1 uL; Basophils % (auto) 0.5 % (0.0-2.0); Eosinophils # (auto) 0.1 uL; Eosinophils % (auto) 0.7 % (0.0-7.0); Hematocrit 39.6 % (36.0-46.0); Hemoglobin 13.2 g/dL (12.2-16.2); Lymphocytes # (auto) 0.8 uL; Mean Corpuscular Hemoglobin 31.3 pg (28.0-32.0); Mean Corpuscular Hgb Conc. 33.3 g/dL (32.0-36.0); Mean Corpuscular Volume 94.1 fL (80.0-100.0); Monocytes # (auto) 0.8 uL; Monocytes % (auto) 8.8 % (0.0-12.0); Neutrophils # (auto) 7.6 uL; Platelet Count (auto) 182 10^3/uL (140-450); Red Blood Cells 4.21 10^6/uL (4.0-5.20); White Blood Cell 9.4 10^3/uL (4.4-10.8)
[2019-02-27 04:31] LABS: Albumin 2.3 g/dL (3.4-5.0); Calcium 8.4 mg/dL (8.5-10.1); Potassium 3.5 mmol/L (3.5-5.1)
[2019-02-27 04:33] LABS: BUN/Creatinine Ratio 35.6
[2019-02-27 04:36] LABS: Bilirubin, Total 1.9 mg/dL (0.2-1.0); Total Protein 6.3 g/dL (6.4-8.2)
--- NOTE | 2019-02-27 05:20 | NUR ---
PT OFF THE UNIT CARE ENDORSED TO JIMBO GUARDADO.
--- NOTE | 2019-02-27 05:30 | NUR ---
Received Pt from [facility] ICU KAVYA JONES transferred to [id number] via hospital bed on threat monitoring analyst, and portable 02. Patient transferred to KRISTIN bed, connected to unit monitoring and oxygen, and weighed by bed scale. Patient oriented to Devika escobar RN, unit, room, bed, and unit policies regarding patient care and visiting hours. All questions and concerns addressed, patient verbalized understanding. Pt awake and alert. Breathing even and nonlabored, On O2NC 2LPM, no s/s of distress, occasional cough, no sputum. PICC line on right upper arm, flushed well, CDI site. Due to void, negative full bladder. Bed in low position, call light within reach, fall and safety precaution in place, all alarms are audible. Instruct on POC and to call for help as needed.
[2019-02-27] MEDS: FUROSEMIDE 40 MG/4 ML VIAL IV SCH ×2 (06:00→18:47)
--- NOTE | 2019-02-27 06:00 | NUR ---
Pain/ PU Pt c/o pain at the bottom. Pt able to turned by self, checked Pt's bottom, Optifoam in place. Found unstaggable black and red colored skin at the sacrum, will take a picture and endorsed care to day shift. Put a pillow for back support and of load pressure at sacrum. Continue care.
[2019-02-27] MEDS: ALBUTEROL SULF 2.5 MG/0.5ML(0.5%) NEB SOLN NEB SCH ×3 (07:29→18:20)
[2019-02-27] MEDS: IPRATROPIUM BROM 0.5 MG/2.5ML INH SOL NEB SCH ×3 (07:29→18:20)
--- NOTE | 2019-02-27 08:00 | NUR ---
Opening Shift Note Assumed care of patient, awake and alert. Patient A&Ox4. Patient on the monitor. Patient on 2L NC saturation at 97%. Right upper arm triple lumen PICC saline locked, patent, clean, dry, and intact. No S/S of distress/SOB or pain. Instructed on POC and to call for assist. Bed locked and in the lowest position, side rails up x2, call light with in reach. Will continue to monitor.
--- NOTE | 2019-02-27 08:30 | NUR ---
Patient sitting up in bed eating breakfast independently. Will continue to monitor.
--- NOTE | 2019-02-27 10:00 | NUR ---
Medication dosages, usages, and side effects explained to patient. Patient verbalized understanding. Will continue to monitor.
--- NOTE | 2019-02-27 10:30 | NUR ---
Dr. Wellington at bedside.
[2019-02-27] MEDS: Ensure Enlive Strawberry 8oz Bottle PO SCH ×3 (10:40→18:47)
[2019-02-27] MEDS: SODIUM CHLOR 0.9% PF (SALINE LOCK) 10ML VIAL/SYR IV SCH ×2 (10:41→22:00)
[2019-02-27] MEDS: MUPIROCIN 2% OINT 15gm or 22gm EACHNOSTRI SCH ×2 (10:41→22:00)
[2019-02-27] MEDS ORDERED: FAMOTIDINE 20 MG TAB PO ONE (10:45)
--- NOTE | 2019-02-27 11:52 | NUR ---
Nutrition Follow-up Notes Wt.: 31.8 kg Pt`s successfully extubated sleeping with no family by bedside. pt with no distress noted per nursing. pt is currently on cardiac soft diet with inadequate PO of < 50% x 4 per RN doc Est. Needs based on IBW (45 kg): 1150 kcal to 1350 kcal (25-30 kcal/kgIBW), 45 gms to 52 gms pro (1.0-1.3 gms/kgIBW d/t severe hypoalbuminemia). Will continue to monitor pertinent labs and reassess nutrient need prn Labs: GLU 122 H, ALB 2.3 L, BUN 21 H, CO2 41 H, CA 8.1 L Skin: Spencer scale 13 mod risk, skin intact per automated equipment engineer technician. GI: Pt has no BM reported per automated equipment engineer technician. PES: Partially resolved: Increased nutrient needs r/t current/chronic medical condition aeb 80% IBW, BMI 15.7 kg/m2, cachectic. intubated, sedated, severe hypoalbuminemia, NPO. Altered nutrition related lab values r/t current/chronic medical condition aeb hyperglycemia,hypokalemia, hypercapnia, hypochloremia, elev. AST, hyperbilirubinemia, hypocalcemia and severe hypoalbuminemia Will continue to monitor PO intake, skin status, pertinent labs and weight trend. F/u in 3 to 5 days. Rec.: 1.) Consider Ensure Enlive 1 carton TID. 2) continue assistance with meals. 3) Refer to RD for further nutrition educ. and weight monitoring upon discharge. 4.) Continue current plan of care.
--- NOTE | 2019-02-27 11:55 | NUR ---
WOUND CARE NOTE: IN TO ASSES PATIENT'S SACRUM/COCCYX AT THIS TIME. SINCE LAST VISIT, PATIENT HAS BEEN EXTUBATED, AND IS IN KRISTIN. SHE IS ABLE TO SELF TURN/REPOSITION SELF, BUT IS VERY WEAK. PATIENT'S CURRENT JESSIE SCORE IS 15. PATIENT IS NOTED TO HAVE TWO INTACT PURPLE ECCHYMOTIC AREAS NOTED TO THE COCCYX/SACRUM. PERIWOUND IS BRIGHT RED. PATIENT IS WEARING AN OPTIFOAM GENTLE SACRAL DRESSING TO COVER AND PROTECT. ORDERED SPECIALTY AIR MATTRESS AT THIS TIME. PATIENT TO BE PLACED, PENDING DELIVERY BY [facility]. WOUND PHOTO WAS TAKEN BY BEDSIDE NURSE UPON ASSESSMENT FOR REFERENCE. RECOMMEND: [id number] LYING POSITIONING, UNLESS UP IN CHAIR, OR WORKING WITH PHYSICAL THERAPY, AIR MATTRESS, CONTINUED MONITORING BY WOUND CARE TEAM. Addendum: 02/27/19 at 1839 by Amie Dsouza RN Amended: Links added.
[2019-02-27] MEDS ORDERED: MIDODRINE HCL 10 MG TAB PO SCH (12:00)
[2019-02-27] MEDS ORDERED: POTASSIUM CHL 20 Meq TABLET PO ONE ×2 (13:15→13:52)
--- NOTE | 2019-02-27 13:15 | NUR ---
Assisted patient to bathroom with standby assist. Patient had moderate sized brown liquid stool. Patient back in bed and resting now. Will continue to monitor.
--- NOTE | 2019-02-27 15:20 | NUR ---
Dr. Moura at bedside.
--- NOTE | 2019-02-27 16:22 | NUR ---
Assessment Pt is a 53 yr old female, alert and oriented x4 but extremely quiet. Pt admitted with extreme weakness and is still feeling very weak. Pt lives with her dad and hopes to go back home upon d/c. Prior to admit, pt able to ambulate and function independently with ADL's but is not sure if she can now. Pt has no DME in the home. Pt has no Primary doctor. Pt has no insurance established, but said she used to have [employer]. Pt had been referred to Isamar who will help with financial and insurance questions. Pt interested in AD paperwork, SW provided it. Pt stated that she will have to call and [employer] to transport her after d/c. D/C needs will be further assessed closer to d/c. Addendum: 02/27/19 at 1628 by CAM FERRER Amended: Links added.
[2019-02-27 17:09] LABS: Hepatitis A Ab IgM Negative; Hepatitis B Core IgM Negative; Hepatitis B Surface Antigen Negative (Negative)
[2019-02-27 17:10] LABS: Hepatitis C Antibody Negative (Negative)
--- NOTE | 2019-02-27 18:30 | NUR ---
End of shift note: Patient sitting up in bed eating dinner. Patient A&Ox4. Patient on the monitor. Patient on 2L NC saturation at 98%. Right upper arm triple lumen PICC saline locked, patent, clean, dry, and intact. No S/S of distress/SOB or pain. Patient on specialty bed. Bed locked and in the lowest position, side rails up x2, call light with in reach. Report to be given to credit checker RN. Will continue to monitor.
--- NOTE | 2019-02-27 19:23 | NUR ---
open assumed care of female pt. pt is on nc 2L, connected to luciana monitors. vs are stable. pt denies pain at this time. respirations are equal and unlabored. pt is a/o x4. soft spoken and refusing to want to eat dinner. pt states she wants cake. pt is siting up in the bed watching tv. pt educated on the call light, pt verbalized understanding, call light is within reach. bed is in the lowest position, wheels locked. pt is in full view of rn station. will continue to care for and monitor.
[2019-02-27] MEDS: DOBUTamine 1000MCG/ML 250 ML IV SCH (21:07)
--- NOTE | 2019-02-27 22:45 | NUR ---
hospitalist paged pt bp is 80/65. hospitalist paged, awaiting call back for orders.
--- NOTE | 2019-02-27 23:00 | NUR ---
lab called critical value troponin is 0.766, which is trending down since the last troponin result of 0.987 at 1940. md graham
--- NOTE | 2019-02-27 23:15 | NUR ---
hospitalist paged pt bp is 70/53. hospitalist paged, awaiting call back for orders.
--- NOTE | 2019-02-27 23:24 | NUR ---
hospitalist called back Ludwig foil stamp operator called back, orders received.
[2019-02-27] MEDS ORDERED: ALBUMIN 5% 250 ML IV ONE ×2 (23:29→23:30)
[2019-02-28] VITALS (21 sets, daily range): BP systolic 87–118; BP diastolic 48–79
[2019-02-28 05:56] LABS: Albumin 2.8 g/dL (3.4-5.0); BUN/Creatinine Ratio 52.3; Calcium 8.5 mg/dL (8.5-10.1); Potassium 3.5 mmol/L (3.5-5.1)
[2019-02-28] MEDS ORDERED: MIDODRINE HCL 10 MG TAB PO SCH (06:00)
[2019-02-28] MEDS: FUROSEMIDE 40 MG/4 ML VIAL IV SCH ×2 (06:00→18:22)
[2019-02-28 06:01] LABS: Bilirubin, Total 2.1 mg/dL (0.2-1.0); Total Protein 6.6 g/dL (6.4-8.2)
[2019-02-28] MEDS: IPRATROPIUM BROM 0.5 MG/2.5ML INH SOL NEB SCH ×3 (06:30→19:15)
[2019-02-28] MEDS: ALBUTEROL SULF 2.5 MG/0.5ML(0.5%) NEB SOLN NEB SCH ×3 (06:30→19:15)
[2019-02-28] MEDS: Ensure Enlive Strawberry 8oz Bottle PO SCH ×3 (08:00→18:22)
--- NOTE | 2019-02-28 08:10 | NUR ---
Opening Shift Note Assumed care of patient, awake and alert. No S/S of distress/SOB or pain. Instructed on POC and to call for assist PRN, will continue to monitor for changes Q1hr and PRN. Patient has PICC line, on Dobutamine 2.5 mcg/kg/min, O2 NC 1 LPM, will continue to monitor and care, NPO for possible PA catheter insertion today.
--- NOTE | 2019-02-28 09:15 | NUR ---
Dr. Wellington at the bedside, seen and examined patient at this time, plan of care discussed with patient, no procedure today for PA catheter insertion, will try to transfer to higher level of care, patient made aware, will continue Dobutamine and monitor.
--- NOTE | 2019-02-28 09:46 | NUR ---
TRANSFER faxed transfer packet to [facility]. Informed Drs. Wellington and Jose Guadalupe pt has not insurance, medical is pending so finding accepting hospital will be very difficult
--- NOTE | 2019-02-28 10:15 | NUR ---
Kristen CADMIUM BURNER seen and examined patient this morning, plan of care discussed with patient, patient made aware. Continue Dobutamine as order , D/C Midodrine, will continue to monitor and care.
--- NOTE | 2019-02-28 10:22 | NUR ---
Transfer: called [facility] transfer center [phone] and spoke to Oscar. He will present pt to his MD to see if they accept
[2019-02-28] MEDS: MUPIROCIN 2% OINT 15gm or 22gm EACHNOSTRI SCH ×2 (10:27→22:00)
[2019-02-28] MEDS: ASPirin-EC 81 mg tab PO SCH (10:28)
[2019-02-28] MEDS: FAMOTIDINE 20 MG TAB PO SCH (10:28)
[2019-02-28] MEDS: SODIUM CHLOR 0.9% PF (SALINE LOCK) 10ML VIAL/SYR IV SCH ×2 (10:28→22:00)
[2019-02-28] MEDS ORDERED: POTASSIUM CHL 20 Meq TABLET PO ONE (10:45)
--- NOTE | 2019-02-28 11:10 | NUR ---
Dr. Wellington at the bedside, plan of care discussed with patient , patient made aware that we are still working on transfer to higher level of care, patient agreed. Will continue Midodrine 5 mg PO TID. Will continue to monitor and care.
[2019-02-28] MEDS ORDERED: FUROSEMIDE 40 MG/4 ML VIAL IV ONE (11:15)
--- NOTE | 2019-02-28 11:15 | NUR ---
Dr. Wellington made aware that hold Lasix this morning (6Am), received order for lasix 40 mg iv once, patient made aware.
--- NOTE | 2019-02-28 14:00 | NUR ---
Patient had 100 % of Ensure, no N/V or diarrhea noted. Will continue to monitor and care.
--- NOTE | 2019-02-28 15:23 | NUR ---
Transfer: [facility] denied transfer do that they do not do procedure there. I paged Drs. Wellington and Jose Guadalupe to let them know the best we can do is to get pt medically stable for d/c and give resources for f/u as outpt
[2019-02-28] MEDS ORDERED: MIDODRINE HCL 10 MG TAB PO ONE (15:45)
--- NOTE | 2019-02-28 17:05 | NUR ---
Patient lying on the bed, watching TV, BP 91/56 mmHg, after Midodrine given. Continue Dobutamine iv 2.5 mcg/kg/min. Will continue to monitor an care.
[2019-02-28] MEDS: MIDODRINE HCL 10 MG TAB PO SCH (18:22)
[2019-02-28] MEDS: DOBUTamine 1000MCG/ML 250 ML IV SCH (19:00)
--- NOTE | 2019-02-28 19:10 | NUR ---
open assumed care of female pt. pt is on nc 2L, connected to luciana monitors. vs are stable. respirations are equal and unlabored. pt is a/o x4 but makes statments that raise question to pt being possibly confused. " the pizza has blood on it".when asked the pt what does that mean she said "i dont know, never mind and laughed." soft spoken. refused dinner but states she wants a soda. pt has a R upper arm triple lumen that is asymptomatic and is patent and flushed with ns. dressing is clean and dry. pt denies pain at this time. pt has what appears to be a dti to her sacrum. will apply an optifoam as a safety measure. pillows in place to help pt offload pressure. pt is siting up in the bed watching tv. pt educated on the call light, pt verbalized understanding, call light is within reach. bed is in the lowest position, wheels locked. pt is in full view of rn station. will continue to care for and monitor.
--- NOTE | 2019-02-28 19:10 | NUR ---
statments that raise question to pt possibly being confused. makes statments that raise question to pt being possibly confused. " the anaa has blood on it".when asked the pt what does that mean she said "i dont know, never mind and laughed."
--- NOTE | 2019-02-28 20:10 | NUR ---
optifoam applied to sacrum sacrum appears to have a dti. optifoam applied for pts saftey and comfort.
--- NOTE | 2019-02-28 23:10 | NUR ---
assisted pt to bedside commode pt voided 100ml in bedside commode. assisted back to bed. pt tolerated ambulation, movement and care.
[2019-03-01] VITALS: BP_SYST 87; BP_SYST 93; BP_DIAS 53; BP_DIAS 57
--- NOTE | 2019-03-01 01:45 | NUR ---
r iv patent iv patent, flushed with ns, asymptomatic. pt states no pain at this time. dressing is clean dry and intact. iv running dobutamine at 2.5mcg/kg/min.
--- NOTE | 2019-03-01 01:45 | NUR ---
pt took off optifoam pt states "i took off the pad because i didnt want it on any more." pt was educated on the importance of the optifoam pad. the pt stated "not right now, maybe tomorrow we can put it back on."
[2019-03-01 02:00] VITALS: BP 104/67
--- NOTE | 2019-03-01 05:10 | NUR ---
vs stable vs stable at this time. sating 99%, no ss of distress noted at this time. r iv patent, flushed with ns, asymptomatic. pt states no pain at this time. dressing is clean dry and intact. iv running dobutamine at 2.5mcg/kg/min.
[2019-03-01] MEDS: MIDODRINE HCL 10 MG TAB PO SCH ×2 (05:38→12:18)
[2019-03-01] MEDS: FUROSEMIDE 40 MG/4 ML VIAL IV SCH ×2 (05:38→18:00)
[2019-03-01 06:23] LABS: Potassium 3.6 mmol/L (3.5-5.1)
[2019-03-01] MEDS: ALBUTEROL SULF 2.5 MG/0.5ML(0.5%) NEB SOLN NEB SCH (06:25)
[2019-03-01] MEDS: IPRATROPIUM BROM 0.5 MG/2.5ML INH SOL NEB SCH (06:25)
[2019-03-01 06:33] LABS: Albumin 2.7 g/dL (3.4-5.0); Bilirubin, Total 1.5 mg/dL (0.2-1.0); Calcium 9.2 mg/dL (8.5-10.1); Total Protein 6.8 g/dL (6.4-8.2)
[2019-03-01 08:00] VITALS: BP 101/66
--- NOTE | 2019-03-01 08:00 | NUR ---
Opening Shift Note Assumed care of patient, awake and alert. No S/S of distress/SOB or pain. Instructed on POC and to call for assist PRN, will continue to monitor for changes Q1hr and PRN. Patient went to bedside commode.
[2019-03-01] MEDS: SODIUM CHLOR 0.9% PF (SALINE LOCK) 10ML VIAL/SYR IV SCH ×2 (08:49→23:21)
[2019-03-01] MEDS: Ensure Enlive Strawberry 8oz Bottle PO SCH ×3 (08:49→18:00)
[2019-03-01] MEDS: FAMOTIDINE 20 MG TAB PO SCH (08:49)
[2019-03-01] MEDS: MUPIROCIN 2% OINT 15gm or 22gm EACHNOSTRI SCH ×2 (08:49→22:00)
[2019-03-01] MEDS: ASPirin-EC 81 mg tab PO SCH (10:00)
--- NOTE | 2019-03-01 10:11 | NUR ---
PT 1st AM visit, patient was having breakfast. 2nd AM visit, refused to be OOB or do PT with c/o nausea. Addendum: 03/01/19 at 1015 by DORA WINSTON PTT Amended: Links added.
--- NOTE | 2019-03-01 10:15 | NUR ---
Dr. Wellington at the bedside, seen and examined patient at this time, plan of care discussed with patient. Patient made aware that [facility] didn't accept her for transferring at this time, explained her limited and discussed with other options. Will call [facility] to get her medication record from Jun 2017. Patient made aware that our social welfare administrator still working her insurance. Will continue to monitor and care. Received order to transfer to Tele. Patient made aware.
--- NOTE | 2019-03-01 11:30 | NUR ---
manager zone at the bedside.
--- NOTE | 2019-03-01 11:52 | NUR ---
Received a call from Kristen SIMON, will try to hold Dobutamine at this time, will continue to monitor. HR 110 /min with pace, BP 93/57 mmHg, RR22/min, o2 saturation 98%. Hold Dobutamine at this time.
[2019-03-01 12:00] VITALS: BP 91/57
--- NOTE | 2019-03-01 13:10 | NUR ---
Dr. Moura at the bedside, seen and examined patient, plan of care discussed with patient, patient made aware.
--- NOTE | 2019-03-01 13:55 | NUR ---
Stopped Dobutamine since 12pm, HR 110/min with pace beat, BP 102/68 mmHg, Midodrine given as schedule. RR 24 /min, O2 saturation 98% with O2 NC 2 LPM. Called and talked to Kristen SIMON made aware, will transfer to Tele.
--- NOTE | 2019-03-01 14:00 | NUR ---
Faxed Medical record requested to [facility] at [phone].
--- NOTE | 2019-03-01 14:16 | NUR ---
KRISTIN pt transferred to floor KAVYA JONES transferred to 231 via wheel chair on aviation electronics technician (tele. All patient medications and personal belongings transferred with patient to receiving floor. Patient care transferred to Anneliese GUARDADO. Left message to Kierra (her sister) to make aware for transferring to room 231.
--- NOTE | 2019-03-01 14:56 | NUR ---
Telemetry admit from KAVYA CEDILLO admitted to Telemetry unit after SBAR received. Patient oriented to BÁRBARA STOKES RN primary RN, unit, room, bed, and unit policies regarding patient care and visiting hours. Patient now on continuous telemetry monitoring, tele box # 7 and telemetry reading on arrival to unit is paced at 106. Patient placed on bedside oxygen, weighed by bed scale and encouraged to call if they need something. All questions and concerns addressed, patient verbalized understanding. Addendum: 03/01/19 at 1500 by BÁRBARA STOKES RN RN Title of note above should read Telemetry downgrade from KRISTIN.
[2019-03-01 16:51] VITALS: BP 101/68
[2019-03-01] MEDS ORDERED: POTASSIUM CHL 20 Meq TABLET PO ONE (17:15)
--- NOTE | 2019-03-01 19:30 | NUR ---
Opening Shift Note Assumed care of patient, awake and alert x4. Patient denies pain at this time. No S/S of distress noted at this time. Instructed on plan of care and to call for assistance as needed, patient verbalized understanding. Bed is locked in lowest position, side rails x 2 are up, call light is within reach, and bed alarm is on.
--- NOTE | 2019-03-01 19:50 | NUR ---
SPUTUM Patient noted to cough up a small amount of dark brown sputum. Per patient, she has been coughing up dark brown sputum since she was extubated. Patient denies any shortness of breath at this time. No S/S of distress noted at this time. Patient is laying in bed with head of the bed at 45 degrees. Bed is locked in lowest position, side rails x 3 are up, call light is within reach, and bed alarm is on.
[2019-03-01 21:43] VITALS: BP 104/74
--- NOTE | 2019-03-01 22:10 | NUR ---
CALLED PHARMACY RE: BACTROBAN MEDICATION Notified pharmacist that bactroban medication was not in the patients cassette. Was advised by pharmacist to call KRISTIN and ask for medication, since according to pharmacist medication was already dispensed.
--- NOTE | 2019-03-01 22:15 | NUR ---
CALLED KRISTIN RE: MEDICATION Called KRISTIN and informed them that this patient was downgraded from KRISTIN today to telemetry floor and was notified by pharmacy that the Bactroban medication was dispensed to KRISTIN. Per KRISTIN, will check patient cassette and give this RN a call back.
--- NOTE | 2019-03-01 22:35 | NUR ---
ATTEMPTED TO CALL PHARMACY RE: BACTROBAN OINTMENT Attempted to call pharmacy in regards to Bactroban ointment not being found in patients room, cassette, or KRISTIN cassette. Call was not answered. Addendum: 03/02/19 at 0023 by JUAN LUBIN RN RN Charge nurse made aware of the situation.
--- NOTE | 2019-03-01 22:35 | NUR ---
FOLLOW UP ON MEDICATION Called KRISTIN to follow up in regards to the Bactroban ointment. Per Radhames, no medications/ointment were found in patients cassette.
[2019-03-02] VITALS (7 sets, daily range): BP systolic 91–100; BP diastolic 60–69
--- NOTE | 2019-03-02 02:08 | NUR ---
PICC LINE DRESSING CHANGE PICC line dressing change done with a sterile technique. Cleansed with ChloraPrep scrub/Betadine. PICC secured with new Stat-lock; bio-patch, and occlusive dressing. PICC line caps changed. Patient tolerated dressing change well. Patient is laying in bed with even and unlabored respirations. No S/S of distress noted at this time. Bed is locked in lowest position, side rails x 3 up, call light is within reach, and bed alarm is on.
--- NOTE | 2019-03-02 02:31 | NUR ---
HOSPITALIST PAGED RE: BREATHING TREATMENT Hospitalist paged regarding breathing treatment. Patient is complaining of shortness of breath and is requesting a breathing treatment. Awaiting call back. Addendum: 03/02/19 at 0241 by JUAN LUBIN RN RN Patients SPO2 found to be 95% on 2L NC, lungs upon auscultation found to be coarse. No wheezing noted. No S/S of distress noted at this time.
[2019-03-02] MEDS: FUROSEMIDE 40 MG/4 ML VIAL IV SCH (06:00)
--- NOTE | 2019-03-02 06:04 | NUR ---
HOSPITALIST PAGED RE: LOW BLOOD PRESSURE Hospitalist paged regarding low blood pressure. Patient has end stage heart failure. Patients blood pressure is 91/60, MAP: 73, and heart rate: 103. Patient denies headache or dizziness at this time. Awaiting call back.
--- NOTE | 2019-03-02 06:35 | NUR ---
HOSPITALIST RETURNED CALL RE: BLOOD PRESSURE Notified ALFRED Ludwig of patients blood pressure: 91/60, MAP: 73, and heart rate: 103. ALFRED Ludwig aware that patient is asymptomatic at this time. Per ALFRED Ludwig, he is okay with patients blood pressure as long as MAP is greater than 60 and patient is asymptomatic. No new orders received at this time. Will continue to monitor patient.
[2019-03-02 06:52] LABS: Potassium 3.7 mmol/L (3.5-5.1)
[2019-03-02 06:59] LABS: Albumin 2.8 g/dL (3.4-5.0); BUN/Creatinine Ratio 65.2; Bilirubin, Total 1.6 mg/dL (0.2-1.0); Calcium 9.1 mg/dL (8.5-10.1); Total Protein 7.3 g/dL (6.4-8.2)
--- NOTE | 2019-03-02 07:30 | NUR ---
Opening Shift Note Assumed care of patient, awake and alert. No S/S of distress/SOB or pain. Instructed on POC and to call for assist PRN, will continue to monitor for changes Q1hr and PRN. Patient is lethargic but alert. O2 in place.
[2019-03-02] MEDS: Ensure Enlive Strawberry 8oz Bottle PO SCH ×3 (08:00→17:34)
--- NOTE | 2019-03-02 08:30 | NUR ---
Breakfast tray at bedside. Offered to assist patient with eating. Patient states she will eat "later". Encouraged patient to call for assist. Call light in reach. Will continue to monitor.
[2019-03-02] MEDS: FAMOTIDINE 20 MG TAB PO SCH (09:46)
[2019-03-02] MEDS: SODIUM CHLOR 0.9% PF (SALINE LOCK) 10ML VIAL/SYR IV SCH ×2 (10:00→22:22)
[2019-03-02] MEDS ORDERED: FURO40TA4 PO (12:42)
[2019-03-02] MEDS ORDERED: POTA-167 PO (12:42)
--- NOTE | 2019-03-02 13:10 | NUR ---
WOUND CARE NOTE: Weekly reevaluation by wound care team. Patient has been on skin integrity rounding due to DTI to coccyx. Patient is now on telemetry in room 231A. Patient is alert and denies pain. Patient is able to turn self. Sacral OPTIFOAM GENTLE dressing in place and is C/D/I. Peeled back dressing to assess and photograph wound. Skin remains intact with two deep maroon areas measuring 3x1cm each. No other wound noted. RECOMMENDATIONS: Nursing to continue with previous written wound/skin care orders; wound care team to continue to follow. Addendum: 03/02/19 at 1742 by LORNA MENDOZA RN Amended: Links added.
[2019-03-02] MEDS: MUPIROCIN 2% OINT 15gm or 22gm EACHNOSTRI SCH ×2 (14:00→22:06)
--- NOTE | 2019-03-02 14:46 | NUR ---
Nutrition Follow-up Notes Wt.: 48.5 kg Pt's on oxygen via nasal cannula, asleep in isolation room, no immediate family member at bedside during rounds this morning. Pt's no signs of distress noted, earlier, currently on 2 gms Na diet with Ensure Enlive 1 carton TID, has inadequate PO intake aeb <50% ave. consumed meals (x5) in last 2.5 days d/t pt refused, per nursing. Est. Needs based on IBW (45 kg): 1150 kcal to 1350 kcal (25-30 kcal/kgIBW), 45 gms to 52 gms pro (1.0-1.3 gms/kgIBW d/t severe hypoalbuminemia). Will continue to monitor pertinent labs and reassess nutrient need prn Labs: Gluc 123 H, Cl 96 L, CO2 35 H, BUN 30 H, Cr 0.46 L,Tot juan f 1.6 H, AST 46 H, ALP 123 H, Alb 2.8 L Skin: Spenecr scale 12, high risk, pt's medial coccyx discoloration per land examiner. GI: Pt had 2xBM yesterday per land examiner. PES: Partially resolved: Increased nutrient needs r/t current/chronic medical condition aeb 80% IBW, BMI 15.7 kg/m2, cachectic. intubated, sedated, severe hypoalbuminemia, NPO. Altered nutrition related lab values r/t current/chronic medical condition aeb hyperglycemia,hypokalemia, hypercapnia, hypochloremia, elev. AST, hyperbilirubinemia, hypocalcemia and severe hypoalbuminemia Will continue to monitor PO intake, skin status, pertinent labs and weight trend. F/u in 3 to 5 days. Rec.: 1.) Continue close supervision and feeding assistance prn with meals. 2.) Consider Cardiac: 2 gms Na, Low Cholesterol, Low Fat diet. 3.) If Albumin continues trending down, consider Prostat 1 pkt BID. 4.) Refer to RD for further nutrition educ. and weight monitoring upon discharge. 5.) Continue current plan of care.
--- NOTE | 2019-03-02 15:00 | NUR ---
Patient more alert, sitting up in chair. Patient ambulated to bathroom with standby assist.
--- NOTE | 2019-03-02 15:45 | NUR ---
Dr. Moura in to see patient for pulmonary follow up.
--- NOTE | 2019-03-02 16:40 | NUR ---
Spoke with patient's sister, Kierra. Kierra states the patient has no family in the area and is not able to care for herself. Sister states she needs to speak with someone re discharge. Order placed for Agricultural Adviser consult.
[2019-03-02] MEDS: FUROSEMIDE 40 MG TAB PO SCH (17:33)
--- NOTE | 2019-03-02 18:07 | NUR ---
PRN MED NEB ASSESSMENT. PT DENIES SOB. NO DISTRESS NOTED AT THIS TIME. POX 98% ON 2L NC HR 101 RR 18 BS ARE CRACKLES IN BASES. TX NOT GIVEN.
[2019-03-02] MEDS: POTASSIUM CHL 10 Meq TABLET PO SCH (22:22)
[2019-03-03 05:00] VITALS: BP 106/77
[2019-03-03] MEDS: FUROSEMIDE 40 MG TAB PO SCH ×2 (06:00→18:08)
[2019-03-03] MEDS: Ensure Enlive Strawberry 8oz Bottle PO SCH ×3 (08:00→18:00)
--- NOTE | 2019-03-03 08:00 | NUR ---
RECEIVED PATIENT ALERT AND ORIENTED X3, NOT IN DISTRESS, LS CLEAR IN BILATERAL UPPER AND DIMINISHED IN LOWER LUNG LOBES, RR=16 LLC=074% WITH O2 2L NC, DEEP BREATHING AND COUGHING ENCOURAGED, DEMONSTRATED UNDERSTANDING, HEART V PACE BEATS R=108 ON TELE MONITOR, ABDOMEN SOFT AND FLAT WITH ACTIVE BS, LAST BM=03/02/19 REPORTED, SACRUM DEEP TISSUE INJURY SPOT WITH NO SKIN BREAK NOTED, GENERAL SKIN INTACT WARM TO TOUCH, RADIAL AND PEDAL PULSES PALPABLE, CAP REFILL<3 SECONDS, ON AIR MATTRESS, HEAD OF BED ELEVATED, BED ON LOW POSITION, RAILS UP X2, CALL LIGHT ON REACH, PENDING SS FOR TRANSFER PROCESS, WILL CONTINUE MONITORING.
[2019-03-03 09:00] VITALS: BP 105/80
[2019-03-03] MEDS: MUPIROCIN 2% OINT 15gm or 22gm EACHNOSTRI SCH (10:53)
[2019-03-03] MEDS: SODIUM CHLOR 0.9% PF (SALINE LOCK) 10ML VIAL/SYR IV SCH ×2 (10:54→21:15)
[2019-03-03] MEDS: POTASSIUM CHL 10 Meq TABLET PO SCH ×2 (10:54→21:15)
[2019-03-03] MEDS: FAMOTIDINE 20 MG TAB PO SCH (10:54)
[2019-03-03 13:00] VITALS: BP 115/70
--- NOTE | 2019-03-03 13:05 | NUR ---
OUT OF THE BED WITH PT, AMBULATED AROUND THE UNITE X2, TOLERATED WELL, SAT ON CHAIR FOR ONE HOUR AND BACK TO THE BED, TOLERATED WELL, RESTING ON BED AND SOCIALIZING WITH VESTING FRIEND, SS FOR D/C PROCESS ORDERED, WILL CONTINUE MONITORING.
[2019-03-03] MEDS: ALBUTEROL SULF 2.5 MG/0.5ML(0.5%) NEB SOLN NEB PRN (15:20)
--- NOTE | 2019-03-03 15:31 | NUR ---
re-assessment Per consult Kierra Mackey sister [phone] lives in [place], wants to speak to human services case manager regarding discharge planning. With permission from patient I have called patients sister Kierra. Per Kierra she is on her way to the area now. [place] is in the airport now. Per Kierra she will be here around 830pm. Kierra has Igor Mayers's phone number and is aware that patient has no insurance as of now. Kierra will be here to transport patient home. Per Dr Wellington she will keep patient here over the weekend. If patient has not been discharged, I will speak with patient and Kierra at bedside on Wednesday. Addendum: 03/03/19 at 1539 by Luann Torres Amended: Links added.
[2019-03-03 17:00] VITALS: BP 96/69
--- NOTE | 2019-03-03 18:35 | NUR ---
RT NOTE PT WAS SEN BY RT FOR PRN HHN TX. PT STATES NO TREATMENT NEEDED AT THIS TIME. NO SOB OR DISTRESS NOTED. HR 101, RR 18, BS CLEAR/DIMINISHED, POX 94% ON 1L NASAL CANNULA. PT AWARE TO CALL IF SOB OR WHEEZES. NO PRN TX INDICATED AT THIS TIME. CONT ORDERED Addendum: 03/03/19 at 1855 by Radha Wall RT Amended: Links added.
--- NOTE | 2019-03-03 19:50 | NUR ---
NOT IN DISTRESS, DENIED PAIN, RESTING ON BED, REPORT WAS GIVEN TO THE AUTOMOBILE ACCESSORIES INSTALLER RN.
[2019-03-03 22:00] VITALS: BP 103/68
[2019-03-04 05:00] VITALS: BP 84/51
[2019-03-04] MEDS: FUROSEMIDE 40 MG TAB PO SCH ×2 (05:37→17:52)
--- NOTE | 2019-03-04 07:30 | NUR ---
Opening Shift Note Assumed care of patient, awake and alert. No S/S of distress/SOB or pain. Instructed on POC and to call for assist PRN, will continue to monitor for changes Q1hr and PRN.
[2019-03-04 08:00] VITALS: BP 94/56
[2019-03-04] MEDS: Ensure Enlive Strawberry 8oz Bottle PO SCH ×3 (08:00→18:00)
[2019-03-04] MEDS: SODIUM CHLOR 0.9% PF (SALINE LOCK) 10ML VIAL/SYR IV SCH ×2 (10:00→22:03)
[2019-03-04] MEDS: POTASSIUM CHL 10 Meq TABLET PO SCH ×2 (10:00→22:03)
[2019-03-04] MEDS: FAMOTIDINE 20 MG TAB PO SCH (10:00)
[2019-03-04 12:00] VITALS: BP 96/59
--- NOTE | 2019-03-04 12:59 | NUR ---
Family at bedside.
[2019-03-04 17:13] VITALS: BP 92/63
--- NOTE | 2019-03-04 19:10 | NUR ---
Opening Shift Note Assumed care of patient, awake and alert. No S/S of distress/SOB or pain. Safety measures in place bed in lowest position, side rails x2, and call light within reach. Instructed on POC and to call for assist PRN, will continue to monitor for changes Q1hr and PRN.
[2019-03-04 21:00] VITALS: BP 93/64
[2019-03-04] MEDS: ALBUTEROL SULF 2.5 MG/0.5ML(0.5%) NEB SOLN NEB PRN (21:22)
[2019-03-05 05:00] VITALS: BP 91/64
[2019-03-05 05:46] LABS: Potassium 3.4 mmol/L (3.5-5.1)
[2019-03-05] MEDS: FUROSEMIDE 40 MG TAB PO SCH ×2 (05:53→17:38)
[2019-03-05 05:54] LABS: Albumin 2.2 g/dL (3.4-5.0); BUN/Creatinine Ratio 47.2; Bilirubin, Total 1.2 mg/dL (0.2-1.0); Calcium 9.2 mg/dL (8.5-10.1); Magnesium 2.1 mg/dL (1.6-2.6); Total Protein 6.5 g/dL (6.4-8.2)
--- NOTE | 2019-03-05 07:30 | NUR ---
Opening Shift Note Assumed care of patient, awake and alert. No S/S of distress/SOB or pain. Instructed on POC and to call for assist PRN, will continue to monitor for changes Q1hr and PRN. Patient is on air mattress. PICC line RUE.
[2019-03-05] MEDS: Ensure Enlive Strawberry 8oz Bottle PO SCH ×3 (08:00→18:10)
[2019-03-05] MEDS: FAMOTIDINE 20 MG TAB PO SCH (08:21)
[2019-03-05] MEDS: POTASSIUM CHL 10 Meq TABLET PO SCH ×2 (08:22→21:58)
[2019-03-05] MEDS: ACETAMINOPHEN 500 MG TAB PO PRN (08:50)
[2019-03-05 09:00] VITALS: BP 97/90
--- NOTE | 2019-03-05 09:15 | NUR ---
Respiratory note: PATIENT REQUESTED PRN MED-NEB TX FOR SOB. MED-NEB ADMINISTERED AT THIS TIME.
[2019-03-05] MEDS: ALBUTEROL SULF 2.5 MG/0.5ML(0.5%) NEB SOLN NEB PRN ×2 (09:16→23:01)
[2019-03-05] MEDS: SODIUM CHLOR 0.9% PF (SALINE LOCK) 10ML VIAL/SYR IV SCH ×2 (10:00→21:58)
--- NOTE | 2019-03-05 10:30 | NUR ---
Dr. Abel in to see patient as hospitalist.
--- NOTE | 2019-03-05 11:51 | NUR ---
Nutrition Follow-up Notes Wt.: 46.7 kg Pt's with MD at bedside when rounded this am. Pt's no signs of distress noted, earlier, currently on 2 gms Na diet with Ensure Enlive 1 carton TID, has inadequate PO intake aeb <50% x 5 per nursing as pt refusing PO. Est. Needs based on IBW (45 kg): 1150 kcal to 1350 kcal (25-30 kcal/kgIBW), 45 gms to 52 gms pro (1.0-1.3 gms/kgIBW d/t severe hypoalbuminemia). Will continue to monitor pertinent labs and reassess nutrient need prn Labs: BUN 25 H, CO2 36 H, ASHLYN 1.2 H Skin: Spencer scale 12, high risk, pt's medial coccyx discoloration per consumer sales representative. GI: Pt had 2xBM yesterday per consumer sales representative. PES: Partially resolved: Increased nutrient needs r/t current/chronic medical condition aeb 80% IBW, BMI 15.7 kg/m2, cachectic. intubated, sedated, severe hypoalbuminemia, NPO. Altered nutrition related lab values r/t current/chronic medical condition aeb hyperglycemia,hypokalemia, hypercapnia, hypochloremia, elev. AST, hyperbilirubinemia, hypocalcemia and severe hypoalbuminemia Will continue to monitor PO intake, skin status, pertinent labs and weight trend. F/u in 3 to 5 days. Rec.: 1.) Continue close supervision and feeding assistance prn with meals. 2.) Consider Cardiac: 2 gms Na, Low Cholesterol, Low Fat diet. 3.) If Albumin continues trending down, consider Prostat 1 pkt BID. 4.) Refer to RD for further nutrition educ. and weight monitoring upon discharge. 5.) Continue current plan of care.
[2019-03-05] MEDS ORDERED: POTASSIUM CHL 20 Meq TABLET PO ONE (12:15)
--- NOTE | 2019-03-05 12:24 | NUR ---
PT REFUSED PHYSICAL THERAPY TODAY. GEO SWENSON WAS NOTIFIED. Addendum: 03/05/19 at 1224 by JACOB HILL PTT Amended: Links added.
[2019-03-05 12:41] VITALS: BP 105/71
[2019-03-05 15:34] VITALS: BP 109/70
[2019-03-05 16:43] VITALS: BP 90/64
--- NOTE | 2019-03-05 19:10 | NUR ---
Opening Shift Note Assumed care of patient, awake and alert. No S/S of distress/SOB or pain. Safety measures in place bed in lowest position, side rails x2 up, and call light within reach. Family currently at the bedside. Instructed on POC and to call for assist PRN, will continue to monitor for changes Q1hr and PRN.
--- NOTE | 2019-03-05 20:08 | NUR ---
Respiratory note: At bedside to assess for PRN tx. pt has family at bedside and explains her breathing is fine. BS are diminished t/o, hr 111-115, pox 97-98%.
[2019-03-05 21:00] VITALS: BP 100/67
[2019-03-06] MEDS: ACETAMINOPHEN 500 MG TAB PO PRN (03:09)
[2019-03-06 04:30] VITALS: BP 89/62
[2019-03-06] MEDS: FUROSEMIDE 40 MG TAB PO SCH ×2 (05:45→17:55)
[2019-03-06] MEDS: ALBUTEROL SULF 2.5 MG/0.5ML(0.5%) NEB SOLN NEB PRN (06:01)
--- NOTE | 2019-03-06 06:04 | NUR ---
PT CALLED RT FOR PRN BREATHING TX. TX ADMINISTERED ORDERED FOR PRN. PT IS NOT IN RESPIRATORY DISTRESS. LUNGS ARE DIMINISHED AND PT SLEEPING.
--- NOTE | 2019-03-06 07:15 | NUR ---
Opening Shift Note Assumed care of patient, asleep,No distress/SOB or pain. will continue to monitor for changes Q1hr and PRN. Patient is on air mattress. PICC line RUE intact,in place.call light within reach.
[2019-03-06 09:00] VITALS: BP 93/57
[2019-03-06] MEDS: Ensure Enlive Strawberry 8oz Bottle PO SCH ×3 (09:06→17:55)
--- NOTE | 2019-03-06 10:17 | NUR ---
PT 1st AM visit, patient was asleep. 2nd AM visit, patient requested to comeback later. Addendum: 03/06/19 at 1018 by DORA WINSTON PTT Amended: Links added.
--- NOTE | 2019-03-06 10:30 | NUR ---
MD VISIT DR. DO HERE TO SEE AND EXAMINED PATIENT,INFORMED AND EXPLAIN TO PATIENT RE DISCHARGE PLAN TODAY.
[2019-03-06] MEDS: POTASSIUM CHL 10 Meq TABLET PO SCH ×3 (11:00→22:06)
[2019-03-06] MEDS: FAMOTIDINE 20 MG TAB PO SCH ×2 (11:00→12:50)
--- NOTE | 2019-03-06 11:00 | NUR ---
PATIENT REFUSED A.M. MEDICATION (POTASSIUM AND PEPCID) EXPLAIN INDICATION BUT STILL REFUSED DESPITE EXPLANATION.
[2019-03-06] MEDS: SODIUM CHLOR 0.9% PF (SALINE LOCK) 10ML VIAL/SYR IV SCH ×2 (11:02→22:06)
--- NOTE | 2019-03-06 11:08 | NUR ---
PT Patient refused to be OOB during 3rd morning PT visit. Addendum: 03/06/19 at 1111 by DORA WINSTON PTT Amended: Links added.
--- NOTE | 2019-03-06 11:34 | NUR ---
PATIENT SISTER JENNIFER EASTMAN HERE,INFORMED REGARDING DISCHARGE,VERBALIZED CONCERN RE DISCHARGE PLAN STATED THAT IF PATIENT GETS DISCHARGED IT WILL BE UNSAFE FOR HER,SHE LIVES BY HERSELF,HER HOUSE IS UNLIVABLE AND SHE LIVES WITH CATS AND DOGS AND WILL BE UNABLE TO TAKE CARE OF HERSELF.REQUESTED TO SPEAK TO DR. DO.DR. HI BLANK,AWARE.
--- NOTE | 2019-03-06 11:45 | NUR ---
AND LINDSEY FROM [employer] HERE TO SPEAK WITH PATIENT SISTER JENNIFER,EXPLAIN DISCHARGE PLAN AND OPTIONS.
[2019-03-06 13:00] VITALS: BP 101/69
--- NOTE | 2019-03-06 16:20 | NUR ---
PAGED DR. KIMBALL THRU OFFICE (SPOKE TO KAREN) TO INFORM X RAY RESULT,AWAITING FOR CALL BACK
[2019-03-06 17:00] VITALS: BP 109/73
--- NOTE | 2019-03-06 18:40 | NUR ---
RT NOTE: PT ASSESSED FOR PRN MED NEB TX, PT ON 2LPM NC SPO2 98% HR 117, RR 18, BS DECREASED WITH NO DISTRESS NOTED. PT HAS DRY WEAK NON PRODUCTIVE COUGH. PT DOESN'T WANT MED NEB TX AT THIS TIME. PT NOTIFIED TO HAVE RT PAGED IF SOB OCCURS.
--- NOTE | 2019-03-06 19:03 | NUR ---
STATUS UNCHANGED NO DISTRESS, NO DISCOMFORT.REPORT GIVEN TO INCOMING NOC SHIFT R.N.
--- NOTE | 2019-03-06 19:30 | NUR ---
Opening Shift Note Assumed care of patient, awake and alert. No S/S of distress/SOB or pain. On specialty mattress, family at bedside. Updated on POC and to call for assist PRN, patient and family verbalized understanding, call light within reach, bed alarm on, will continue to monitor for changes Q1hr and PRN.
[2019-03-06 22:00] VITALS: BP 85/56
[2019-03-06 23:30] VITALS: BP 89/58
[2019-03-07] MEDS: ALBUTEROL SULF 2.5 MG/0.5ML(0.5%) NEB SOLN NEB PRN (01:01)
[2019-03-07] MEDS: ONDANSETRON HCL 4 MG/2 ML VIAL IV PRN (04:30)
[2019-03-07 05:09] VITALS: BP 103/70
[2019-03-07] MEDS: FUROSEMIDE 40 MG TAB PO SCH ×2 (06:00→18:00)
--- NOTE | 2019-03-07 07:40 | NUR ---
Respiratory note: PT ASSESSED FOR PRN TREATMENT. PT AWAKE, ALERT AND RESPONSIVE. IN NO DISTRESS AT THIS TIME. NO INDICATION FOR TREATMENT. INFORMED PT IF BECOMES SOB OR HAS WHEEZE TO PUSH CALL BUTTON AND RT WILL BE PAGED.
[2019-03-07 08:30] VITALS: BP 86/53
[2019-03-07] MEDS: POTASSIUM CHL 10 Meq TABLET PO SCH ×4 (10:00→22:00)
--- NOTE | 2019-03-07 10:00 | NUR ---
D/C Planning Per SS consult for hospices pending approval for medical. Contacted and faxed medical records to [facility], [facility] hospice, [facility], [facility] hospice. Per Jaci from [facility] Ph:) Fax:) Pt has been accepted and service to start upon d/c day.
--- NOTE | 2019-03-07 10:00 | NUR ---
AMBULATED IN HALLWAY WITH PHYSICAL THERAPY USING WALKER.BACK TO ROOM TOLERATED ACTIVITY.
[2019-03-07] MEDS: FAMOTIDINE 20 MG TAB PO SCH (10:13)
[2019-03-07] MEDS: SODIUM CHLOR 0.9% PF (SALINE LOCK) 10ML VIAL/SYR IV SCH ×2 (10:14→21:43)
[2019-03-07] MEDS: Ensure Enlive Strawberry 8oz Bottle PO SCH ×3 (10:14→18:30)
--- NOTE | 2019-03-07 10:30 | NUR ---
LINDSEY SEATER GRINDER AT BEDSIDE SPOKE TO PATIENT AND FAMILY RE DISCHARGED PLAN.PATIENT AGREED FOR HOSPICE TO GO AND CHECK HER HOUSE.
--- NOTE | 2019-03-07 10:45 | NUR ---
DR. DO HERE TO SEE AND EXAMINED PATIENT,EXPLAIN DISEASE PROCESS,TREATMENT,PLAN OF CARE AND DISCHARGE PLAN.
[2019-03-07 12:30] VITALS: BP 97/64
--- NOTE | 2019-03-07 15:05 | NUR ---
DR.A. KIMBALL HERE TO SEE AND EXAMINED PATIENT,PLANNING TO INSERT PLEURX WEDNESDAY AND WEDNESDAY AND RECEIVED ORDERS TO CONSULT COMMODITY LOAN CLERK TO ARRANGED FOR HOSPICE NURSE TO DRAIN PLEURX 2 X A WEEK.SEE ORDER WRITTEN
[2019-03-07] MEDS: ACETAMINOPHEN 500 MG TAB PO PRN (15:12)
[2019-03-07 16:31] VITALS: BP 94/65
--- NOTE | 2019-03-07 18:43 | NUR ---
Respiratory note: ASSESSED PT FOR PRN MED NEB TX. PT IS CURRENTLY ON 2 L/M NC: HR 104, RR 18, SPO2 98%. PT SHOWS NO S/S OF SOB OR RESPIRATORY DISTRESS. MED NEB TX NOT INDICATED AT THIS TIME. INFORMED PT TO CONTACT RESPIRATORY IF SOB OCCURS. WILL CONTINUE TO MONITOR.
[2019-03-07] MEDS: CARVEDILOL 3.125 MG TAB PO SCH (21:42)
[2019-03-07 22:00] VITALS: BP 100/66
[2019-03-07 23:38] VITALS: BP 82/50
--- NOTE | 2019-03-07 23:40 | NUR ---
Spoke to Jomar hospitalist and notified her of patient having low blood pressure 82/50 after taking coreg medication and patient blood pressure vital signs trends. Hospitalist Jomar provided new order of albumin 5% 250 ml iv one time dose now and continue to monitor patient. read back and confirmed.
[2019-03-07] MEDS ORDERED: ALBUMIN 5% 250 ML IV ONE (23:45)
[2019-03-08] VITALS (8 sets, daily range): BP systolic 88–99; BP diastolic 55–69
[2019-03-08] MEDS: FUROSEMIDE 40 MG TAB PO SCH (05:31)
--- NOTE | 2019-03-08 06:14 | NUR ---
Paged Hospitalist to notify of blood pressure.
--- NOTE | 2019-03-08 06:16 | NUR ---
Spoke to rick martinez and notified her of patient blood pressure is 88/59, 90 heart rate, and map is 77, asymptomatic, same mentation from the beginning of shift and as described in report from [facility] nurse. No new orders given by rick Martinez and Rick Martinez advised me to continue to monitor patient. Will Carry out. Addendum: 03/08/19 at 0653 by Evin Cloud RN No distress noted, no sob, or pain at this time.
--- NOTE | 2019-03-08 07:30 | NUR ---
OPENING SHIFT NOTE PATIENT RESTING IN BED ON LEFT SIDE. NO S/S OF DISTRESS NOTED AT THIS TIME. DENIES ANY PAIN. RESPIRATIONS EVEN AND UNLABORED. NO S/S OF DISTRESS NOTED A THIS TIME. PATIENT UPDATED ON POC. ALL QUESTIONS ANSWERED. PATIENT VERBALIZED UNDERSTANDING. BED IN LOWEST LOCKED POSITION WITH CALL LIGHT WITHIN REACH. FALL PRECAUTIONS IN PLACE PER PROTOCOL. WILL CONTINUE CARE.
[2019-03-08] MEDS: Ensure Enlive Strawberry 8oz Bottle PO SCH ×3 (08:00→18:00)
--- NOTE | 2019-03-08 08:35 | NUR ---
Respiratory note: PT IS ON 2L NC SHOWING NO SIGNS OF RESPIRATORY DISTRESS. HHN TX NOT INDICATED AT THIS TIME. SPO2 95 ON 2L NC HR 92 BPM RR 16 BS CLEAR THROUGHOUT PT TAUGHT HOW TO OPERATE NURSE CALL BUTTON IF FEELING SOB.
[2019-03-08] MEDS: ONDANSETRON HCL 4 MG/2 ML VIAL IV PRN ×2 (09:55→16:04)
[2019-03-08] MEDS: CARVEDILOL 3.125 MG TAB PO SCH ×2 (09:55→22:00)
[2019-03-08] MEDS: SODIUM CHLOR 0.9% PF (SALINE LOCK) 10ML VIAL/SYR IV SCH ×2 (09:55→22:00)
[2019-03-08] MEDS: POTASSIUM CHL 10 Meq TABLET PO SCH (09:56)
--- NOTE | 2019-03-08 10:00 | NUR ---
Esthela DO AT BEDSIDE. UPDATED ON PATIENT STATUS INCLUDING LOW BLOOD PRESSURE. WILL CONTINUE CARE.
[2019-03-08] MEDS: FAMOTIDINE 20 MG TAB PO SCH (10:03)
[2019-03-08] MEDS ORDERED: POTASSIUM CHL 10 Meq TABLET PO ONE (10:30)
[2019-03-08] MEDS ORDERED: FUROSEMIDE 40 MG TAB PO ONE (10:30)
[2019-03-08] MEDS ORDERED: POTASSIUM EFFERVESENT TAB 25 MEQ PO ONE (12:00)
--- NOTE | 2019-03-08 12:36 | NUR ---
Nutrition Consult and Follow-up Notes Wt.: 47.6 kg today. Pt's in isolation room, on oxygen via nasal cannula, asleep, no signs of distress noted, earlier, currently on 2 gms Na diet with Ensure Enlive 1 carton TID, has inadequate PO intake aeb <50% ave. consumed meals (x5) d/t pt refused, per nursing. Est. Needs based on IBW (45 kg): 1150 kcal to 1350 kcal (25-30 kcal/kgIBW), 45 gms to 52 gms pro (1.0-1.3 gms/kgIBW d/t severe hypoalbuminemia). Will continue to monitor pertinent labs and reassess nutrient need prn Labs: Cl 96 L, K 3.4 L, BUN 25 H, Cr 0.53 L, CO2 36 H, Tot juan f 1.2 H, ALP 118 H, Alb 2.2 L, Trop I 0.828 H Skin: Spencer scale 18, mod risk, pt's medial coccyx discoloration per reservations agent.Pls refer to latest paint department supervisor's notes for further details re: tx plans. GI: Pt had 1x BM this morning per reservations agent. PES: Partially resolved: Increased nutrient needs r/t current/chronic medical condition aeb 80% IBW, BMI 15.7 kg/m2, cachectic. intubated, sedated, severe hypoalbuminemia, NPO. Altered nutrition related lab values r/t current/chronic medical condition aeb hyperglycemia,hypokalemia, hypercapnia, hypochloremia, elev. AST, hyperbilirubinemia, hypocalcemia and severe hypoalbuminemia Will continue to monitor PO intake, skin status, pertinent labs and weight trend. F/u in 3 to 5 days. Rec.: 1.) If Albumin continues trending down, consider Prostat 1 pkt BID. 2.) Consider daily MVI with minerals and Asc acid 500 mgs BID. 3.) Consider Cardiac: 2 gms Na, Low Cholesterol, Low Fat diet. 4.) Continue close supervision and feeding assistance prn with meals. 5.) If pt's PO intake remains inadequate (<50%), consider appetite stimulant, if medically appropriate. 6.) Refer to RD for further nutrition educ. and weight monitoring upon discharge. 7.) Continue current plan of care. Thank you for this consult.
[2019-03-08] MEDS: ALBUTEROL SULF 2.5 MG/0.5ML(0.5%) NEB SOLN NEB PRN ×2 (13:32→21:19)
--- NOTE | 2019-03-08 15:46 | NUR ---
Discharge planning per SS consult, patient has an order for the hospice nurse to drain the Pleurx Cath twice a week. Referral faxed to [facility]. Placed a follow up call, spoke with Kierra and was advised that she was checking with her director to confirm if they were in fact accepting this patient. Kierra called back and advised that they are truly accepting this patient upon discharge and that they did received the order for the drainage of the Pleurx Cath twice a week. Nurse Jean Baptiste was advised.
--- NOTE | 2019-03-08 16:10 | NUR ---
REGARDING URINE OUTPUT INFORMED TALLOW REFINER EKTA OF URINE OUTPUT OF 120ML FOR WHOLE SHIFT. RECEIVED ORDERS FOR A BMP. WILL FOLLOW THROUGH.
[2019-03-08 18:36] LABS: BUN/Creatinine Ratio 38.1; Potassium 4.4 mmol/L (3.5-5.1)
--- NOTE | 2019-03-08 19:00 | NUR ---
ENDORSED CARE TO RN RADHA. INFORMED OF PATIENT STATUS. PATIENT IN NO S/S OF DISTRESS. INFORMED OF STRICT I&O
--- NOTE | 2019-03-08 19:30 | NUR ---
ASSUMED CARE OF PATIENT. ALERT AND ORIENTED X4. VERY WEAK AND LOOKS MALNOURISHED. FLAT AFFECT. CALORIE SHAKES AT BEDSIDE. ENCOURAGED HER TO DRINK ONE IF SHE COULD, TO TRY AND TAKE LITTLE SIPS OFTEN. VERBALIZED UNDERSTANDING. COMPLAINED OF DRESSING TO SACRUM BEING SOILED AND WET. CLEANSED WOUNDS WITH NS AND PAT DRY. APPLIED OPTIFOAM TO SACRUM AND SKIN BARRIER CREAM TO SURROUNDING SKIN ON BUTTOCKS AND ELISABET AREA. USES COMMODE WITH ASSIST. PICC TO LIBBY CLEAN DRY AND INTACT. TRIPLE LUMEN, ALL THREE PORTS PATENT. OXYGEN VIA NC. NO DISTRESS/SOB NOTED.
[2019-03-08] MEDS: MORPHINE SULFATE 4 MG/ML SYR/VIAL IV PRN (21:20)
[2019-03-08] MEDS: SACUBITRIL-VALSARTAN 24mg/26mg TAB PO SCH (22:00)
[2019-03-08] MEDS: TEMAZEPAM 15 MG CAP PO PRN (23:49)
[2019-03-09] MEDS: TEMAZEPAM 15 MG CAP PO PRN (00:22)
[2019-03-09 04:46] VITALS: BP 80/53
--- NOTE | 2019-03-09 06:30 | NUR ---
CHANGED PICC DRESSING USING STERILE TECHNIQUE. PT SLEPT THROUGH MOST OF IT . CHANGED ALL 3 PORTS WELL. SENT BLOOD TO LAB FROM PICC. FLUSHED ALL 3 LUMENS WITH 10 MLS NS. BED LOW AND CALL LIGHT WITHIN REACH
--- NOTE | 2019-03-09 07:25 | NUR ---
Opening Shift Note Assumed care of patient, sleeping in bed. No S/S of distress/SOB or pain. Call light within reach and bed in locked and lowest position, will continue to monitor for changes Q1hr and PRN.
[2019-03-09 07:26] LABS: BUN/Creatinine Ratio 39.7; Calcium 8.4 mg/dL (8.5-10.1)
[2019-03-09 07:31] LABS: INR 1.16 (0.9-1.15); Partial Thromboplastin Time 25.9 sec (23.64-32.05)
--- NOTE | 2019-03-09 07:44 | NUR ---
RT NOTE: WENT TO PTS ROOM TO ASSESS FOR PRN BREATHING TX, NO S/S OF SOB. NO INDICATION FOR THE TX AT THIS TIME. HR 83, RR 16, SPO2 97% ON 3 LPM NC, WILL CONTINUE TO MONITOR PT.
[2019-03-09 08:00] VITALS: BP 82/53
[2019-03-09] MEDS: Ensure Enlive Strawberry 8oz Bottle PO SCH ×2 (08:00→12:00)
[2019-03-09] MEDS: SACUBITRIL-VALSARTAN 24mg/26mg TAB PO SCH ×2 (09:35→22:00)
[2019-03-09] MEDS: CARVEDILOL 3.125 MG TAB PO SCH ×2 (09:35→22:00)
[2019-03-09] MEDS: POTASSIUM CHL 10 Meq TABLET PO SCH (09:37)
[2019-03-09] MEDS: FUROSEMIDE 40 MG TAB PO SCH (09:38)
[2019-03-09] MEDS: FAMOTIDINE 20 MG TAB PO SCH (09:39)
[2019-03-09] MEDS: SODIUM CHLOR 0.9% PF (SALINE LOCK) 10ML VIAL/SYR IV SCH ×2 (09:39→22:00)
--- NOTE | 2019-03-09 10:44 | NUR ---
Dr. Wellington bedside with patient and Qual Research Manager. Discussed pleurx with patient again. Paged PT per Dr. Wellingtons request, SS would like to see how far patient can walk.
--- NOTE | 2019-03-09 11:35 | NUR ---
DR. BARNES BEDSIDE WITH PATIENT
--- NOTE | 2019-03-09 12:02 | NUR ---
Notified by Dr. Wellington that the pleurx order is being cancelled. Carried out order.
[2019-03-09 13:02] VITALS: BP 119/56
--- NOTE | 2019-03-09 13:19 | NUR ---
Transfer: will fax transfer packet to [facility] await updated transfer summary
[2019-03-09] MEDS: ACETAMINOPHEN 500 MG TAB PO PRN (15:45)
[2019-03-09 17:00] VITALS: BP 82/38
--- NOTE | 2019-03-09 17:08 | NUR ---
REPORT RECEIVED RECEIVED REPORT FROM XENA GUARDADO. PATIENT A&O X4, LAYING IN BED IN SEMI-FOWLERS POSITION. PATIENT IS ON 2 L N/C WITH NO S/S OF DISTRESS/SOB AT TIME AND PATIENT DENIES PAIN. BED IS IN LOWEST POSITION, WHEELS LOCKED, SIDE RAILS UP X2, BED ALARM SET FOR SAFETY, AND CALL LIGHT IS WITHIN REACH. ENCOURAGED PATIENT TO CALL NEED AND WILL CONTINUE TO MONITOR Q1H AND PRN.
--- NOTE | 2019-03-09 19:00 | NUR ---
CLOSING NOTE PATIENT IS A&O X4 LAYING COMFORTABLY IN BED, PATIENT IS ON 2 L NC WITH NO S/S OF DISTRESS/SOB OR PAIN AT THIS TIME. ACUTE CARE TRANSFER ENDORSED TO NOC. REPORT GIVEN TO TOM GARCIA RN CARE ENDORSED.
--- NOTE | 2019-03-09 19:30 | NUR ---
Opening Shift Note Assumed care of patient, awake and alert. No S/S of distress/SOB or pain. Encouraging protein shakes at bedside. States shes eating but very frail and bony. Calls often and forgets what she needs. No longer going on hospice but higher level of careInstructed on POC and to call for assist PRN, will continue to monitor for changes Q1hr and PRN.
--- NOTE | 2019-03-09 20:32 | NUR ---
RT NOTE PT WAS SEEN BY RT FOR PRN HHN TX. PT IS SLEEPING AND SHOWS NO S/S OF SOB OR DISTRESS. HR 86, RR 14 ,BS CLEAR/DIM, POX 98% ON 2L NASAL CANNULA. NO PRN TX INDICATED AT THIS TIME. CONT ORDERED Addendum: 03/09/19 at 2037 by Radha Wall RT Amended: Links added.
[2019-03-09 22:12] VITALS: BP 78/57
--- NOTE | 2019-03-09 22:30 | NUR ---
Holding BP meds due to low BP 80's/50's. Asymptomatic. Assist to commode. Bed low and call light within reach
[2019-03-09] MEDS: ALBUTEROL SULF 2.5 MG/0.5ML(0.5%) NEB SOLN NEB PRN (22:38)
--- NOTE | 2019-03-09 22:38 | NUR ---
RT NOTE PT WAS SEEN BY RT FOR HHN TX. PT TOLERATES WELL VIA MASK. NO ADVERSE REACTION NOTED. PT REQUESTING BUBBLE HUMIDIFIER FOR O2. HUMIDIFIER PROVIDED. CONT ORDERED. POX 98% Addendum: 03/09/19 at 2247 by Radha Wall RT Amended: Links added.
[2019-03-10 05:19] VITALS: BP 71/57
[2019-03-10] MEDS: ALBUTEROL SULF 2.5 MG/0.5ML(0.5%) NEB SOLN NEB PRN (06:01)
[2019-03-10] MEDS: Ensure Enlive Strawberry 8oz Bottle PO SCH ×4 (07:43→19:28)
--- NOTE | 2019-03-10 08:00 | NUR ---
Received pt resting in bed, call light with in reach, no pain or distress noted or reported, will continue to monitor pt.
--- NOTE | 2019-03-10 08:35 | NUR ---
spoke to transfer RN at [facility] and she stated she would work on getting her MD to speak to sometime today.
[2019-03-10 09:00] VITALS: BP 86/60
[2019-03-10] MEDS: FAMOTIDINE 20 MG TAB PO SCH (09:30)
[2019-03-10] MEDS: POTASSIUM CHL 10 Meq TABLET PO SCH (09:30)
--- NOTE | 2019-03-10 09:30 | NUR ---
Dr. Wellington at bed side to see pt, doctor discussed the plan of care with pt.
[2019-03-10] MEDS: SODIUM CHLOR 0.9% PF (SALINE LOCK) 10ML VIAL/SYR IV SCH ×2 (09:31→22:00)
[2019-03-10] MEDS: SACUBITRIL-VALSARTAN 24mg/26mg TAB PO SCH ×2 (09:32→22:00)
[2019-03-10] MEDS: CARVEDILOL 3.125 MG TAB PO SCH ×2 (09:32→22:00)
[2019-03-10] MEDS: FUROSEMIDE 40 MG TAB PO SCH (09:32)
--- NOTE | 2019-03-10 10:04 | NUR ---
Transfer: Spoke to [facility] transfer RN and she informed me that pt is not a candidate for evaluation of heart transplant due to her poor nutritional status (albumin 3.3 today) . Dr. Shi and [facility] heel molder spoke at length and this is the result of the conversation. Dr. Wellington notified
--- NOTE | 2019-03-10 10:15 | NUR ---
Dr. judd at bed side to see pt again with clinical social worker Luann Barakat., doctor informed that pt is requesting to change potassium pills to liquid, as per doctor d/c potassium since lasix is not been given due to low bp.
--- NOTE | 2019-03-10 10:40 | NUR ---
WOUND CARE NOTE: IN TO SEE PATIENT AT THIS TIME FOR WOUND REEVALUATION. PATIENT CONTINUES TO REST ON SPECIALTY AIR BED. SHE HAS CURRENT JESSIE SCORE OF 13. SHE IS ABLE TO SELF TURN/REPOSITION SELF. SHE IS CURRENTLY SITTING UP IN BED. PATIENT'S DTI'S TO THE COCCYX AND RIGHT SACRUM HAVE EVOLVED OPEN TO PARTIAL THICKNESS, STAGE 2. WOUND BED AREAS ARE PURPLE AND PALE PINK, WITH PINK PERIWOUND. SCANT SEROUS DRAINAGE NOTED. NEW WOUND PHOTO TAKEN FOR REFERENCE. PATIENT EDUCATED IN WOUND CARE AND PRESSURE REDISTRIBUTION. PATIENT VERBALIZED UNDERSTANDING. APPLIED THERAHONEY AND OPTIFOAM GENTLE SACRAL DRESSING. RECOMMEND: DAILY DRESSING CHANGE WITH THERAHONEY, OPTIFOAM GENTLE SACRAL DRESSING, CONTINUATION WITH ALL OTHER WOUND CARE ORDERS PREVIOUSLY PRESCRIBED BY MD. WOUND CARE TEAM WILL CONTINUE TO MONITOR. Addendum: 03/10/19 at 1641 by Amie Dsouza RN Amended: Links added.
--- NOTE | 2019-03-10 14:33 | NUR ---
re-assessment Spoke with patient today with Dr Wellington. Dr Wellington informed patient that she will not be transferred due to her medical condition. I also informed patient again of her option of placement on hospice. Patient refused placement. We spoke with patient regarding plurex catheter and hospice. Patient wants catheter placement and insist on going home with hospice. I have explained concerns for healthy environment and patients safety. Patient informed Dr Wellington and I that she is having a friend clean her house and hire someone to do her carpet. I did inform patient that APS would be called to assess her living situation when discharged. Patient verbalized understanding. Addendum: 03/10/19 at 1439 by Luann FERRER Amended: Links added.
--- NOTE | 2019-03-10 16:05 | NUR ---
Dr. Pastrana / director trial at unit to see pt.
[2019-03-10 17:14] VITALS: BP 88/56
[2019-03-10] MEDS: Pro-Stat SF 30ml Vanilla PO SCH (19:29)
--- NOTE | 2019-03-10 19:30 | NUR ---
Assumed care of patient. Alert and oriented x3. Forgetful at times. Uses call light often, then when answering her light she forgets what she needed. Will say bizarre things at times or speak Assist to commode. Very thin and weak. Denies pain. Dressing to coccyx falling off, will remove clean and place new dressing. Encouraged and coached to turn q2. Extra pillows given to pad bony prominences. No distress noted.
[2019-03-10 21:31] VITALS: BP 89/54
--- NOTE | 2019-03-11 00:05 | NUR ---
Respiratory note: ASSESSED PT FOR PRN MED NEB AT THIS TIME, PT SLEEPING AT THIS TIME, NO RESP DISTRESS NOTED, NO TX INDICATED, PULSE OX 96% ON 3LNC, HR 94, RR 20, BILATERAL BS DIMINISHED
[2019-03-11 04:40] VITALS: BP 81/53
[2019-03-11] MEDS: ALBUTEROL SULF 2.5 MG/0.5ML(0.5%) NEB SOLN NEB PRN ×2 (05:32→11:39)
[2019-03-11] MEDS: Pro-Stat SF 30ml Vanilla PO SCH ×2 (08:00→18:22)
[2019-03-11] MEDS: Ensure Enlive Strawberry 8oz Bottle PO SCH ×3 (08:00→18:22)
[2019-03-11 09:00] VITALS: BP 98/58
[2019-03-11] MEDS: CARVEDILOL 3.125 MG TAB PO SCH ×2 (10:00→22:00)
[2019-03-11] MEDS: FUROSEMIDE 40 MG TAB PO SCH (10:00)
[2019-03-11] MEDS: FAMOTIDINE 20 MG TAB PO SCH (10:25)
[2019-03-11] MEDS: SACUBITRIL-VALSARTAN 24mg/26mg TAB PO SCH ×2 (10:25→22:00)
[2019-03-11] MEDS: SODIUM CHLOR 0.9% PF (SALINE LOCK) 10ML VIAL/SYR IV SCH ×2 (10:27→22:00)
[2019-03-11 12:20] VITALS: BP 94/51
--- NOTE | 2019-03-11 15:00 | NUR ---
Discharge instructions given as ordered. Encourage to follow up with PMD as instructed. All questions and concerns addressed. Patient verbalized understanding. Medication reconciliation form completed and copy given to patient. Home medications held in Pharmacy returned to patient, and needed vaccines given. IV removed with catheter intact, pressure dressing applied. Telemetry unit returned to ICU. Patient taken to vehicle via wheelchair with all personal belongings, accompanied by staff and family member. No distress noted at time of departure.
[2019-03-11 17:00] VITALS: BP 104/66
[2019-03-11] MEDS: MORPHINE SULFATE 4 MG/ML SYR/VIAL IV PRN (17:06)
[2019-03-11] MEDS: ONDANSETRON HCL 4 MG/2 ML VIAL IV PRN (17:06)
--- NOTE | 2019-03-11 18:00 | NUR ---
Charted in error on this patient. Pt was not discharged. Pt showing no change from initial assessment. Pt with very poor appetite, and extremely weak. Morphine given for c/o generalized pain with good effectiveness.
--- NOTE | 2019-03-11 18:18 | NUR ---
PT ASSESSED, MN TX NOT INDICATED AT THIS TIME. NO SOB, BS DIMINISHED BILATERALLY
--- NOTE | 2019-03-11 20:00 | NUR ---
Opening Shift Note Assumed care of patient, awake and alert. No S/S of distress/SOB or pain. Instructed on POC and to call for assist PRN, will continue to monitor for changes Q1hr and PRN. Patient repositioned for comfort. Bed in low position and call light in reach.
[2019-03-11 22:00] VITALS: BP 71/39
--- NOTE | 2019-03-11 22:49 | NUR ---
Patient's blood pressure - 71/39; Hr 66. Patient denies lightheadedness and dizziness. Repeat B/P 66/38. Marli Hadley NP, notified of findings. New orders received: Albumin 25% in 100 CC; if blood pressure doesn't stabilize post Albumin, give bolus 250cc of 0.9 Normal Saline.
[2019-03-11] MEDS ORDERED: ALBUMIN 25% 100 ML IV ONE (23:00)
[2019-03-12] VITALS (74 sets, daily range): BP systolic 71–143; BP diastolic 34–73
--- NOTE | 2019-03-12 00:30 | NUR ---
Patient awake and alert and assisted to Bedside commode. Blood pressure post Albumin IV - 67/34, HR 68 Patient asymptomatic.
[2019-03-12] MEDS: SODIUM CHLORIDE 0.9% 1,000 ML IV SCH ×2 (02:15→07:15)
--- NOTE | 2019-03-12 03:00 | NUR ---
DATA CENTER CONSULTANT, Jennie Hadley, notified of low blood pressure. Order received to administer additional bolus - 0.9 NS IV.
--- NOTE | 2019-03-12 04:00 | NUR ---
Patient's B/P remains unstable (69/40) status post 2nd bolus of 0.9 Normal 250 cc. Marli Hadley NP, notified order received to transfer patient to ICU.
--- NOTE | 2019-03-12 05:05 | NUR ---
RECEIVED REPORT FROM SUSANA FOR THIS NEW PATIENT THAT IS BEING TRANSFERRED. SPOKE WITH ISAÍAS VICENTE. PATIENT'S SBP IS LOW STILL.
[2019-03-12] MEDS ORDERED: NOREPINEPHRINE 8 MG/250ML KIT 250 ML IV SCH (05:11)
[2019-03-12] MEDS ORDERED: NOREPINEPHRINE 8 MG/250ML KIT 250 ML IV ONE (05:13)
--- NOTE | 2019-03-12 05:15 | NUR ---
PATIENT ARRIVED ON A SPECIAL AIR BED. PLACED ON BEDSIDE MONITOR. O2 2LNP. IMMEDIATELY PLACED ON LEVOPHED DRIP. SYSTOLIC IN THE 90S ON 8 MCG. ALERT. ORIENTED. SLOW SPEECH. DIFFICULTY FINDING HER WORDS. INCONSISTENT THOUGHTS. FILIBERTO. LUNGS CLEAR. TRIED HER OFF OXYGEN AND SHE DROPPED HER O2 SATURATION TO 84% .ABDOMEN FLAT. [place] WELL. NO EDEMA. ALL PULSES PALPABLE. PICC LINE LIBBY. PICC UNABLE TO DRAW BLOOD. 100% V PACED. NO FEVER. MRSA SWAB SENT.
--- NOTE | 2019-03-12 05:30 | NUR ---
AFTER CHECKING HER BELONGINGS, WE ARE MISSING HER CELLPHONE. THE RN IN CHARGE OF 231, SUSANA, IS LOOKING FOR IT. STAGE 2 ON COCCYX. OPTIFOAM ON COCCYX. PICTURES IN CHART FROM THE .
[2019-03-12 07:36] LABS: Anion Gap 9 (5-15); BUN/Creatinine Ratio 38.9; Blood Urea Nitrogen 28 mg/dL (7-18); Calcium 8.9 mg/dL (8.5-10.1); Carbon Dioxide 29 mmol/L (21-32); Chloride 96 mmol/L (98-107); GFR African American 109 mL/min; GFR Non-African American 90 mL/min; Glucose 124 mg/dL (74-106); Potassium 4.5 mmol/L (3.5-5.1); Sodium 134 mmol/L (136-145)
[2019-03-12] MEDS: Pro-Stat SF 30ml Vanilla PO SCH ×2 (08:00→18:39)
[2019-03-12] MEDS: Ensure Enlive Strawberry 8oz Bottle PO SCH ×3 (08:00→18:39)
--- NOTE | 2019-03-12 08:00 | NUR ---
Respiratory note: PT ASSESSED FOR PRN MED NEB TX. POX 93% ON 2L NC, HR 73, RR 20. B/S ARE CLEAR THROUGHOUT ANTERIORLY. NO S/S OF RESPIRATORY DISTRESS. PT IS AWARE THAT SHE CAN REQUEST FOR A MED NEB TX IF SHE FEELS ANY RESPIRATORY DISTRESS.
--- NOTE | 2019-03-12 09:00 | NUR ---
LEVOPHED GTT Levophed gtt decreased to 6 mcg for a blood pressure of 106/49, will continue to titrate as tolerated by patient.
[2019-03-12] MEDS: SACUBITRIL-VALSARTAN 24mg/26mg TAB PO SCH ×2 (09:56→22:00)
[2019-03-12] MEDS: CARVEDILOL 3.125 MG TAB PO SCH ×2 (09:56→22:00)
[2019-03-12] MEDS: FUROSEMIDE 40 MG TAB PO SCH ×2 (10:00→10:29)
[2019-03-12] MEDS: FAMOTIDINE 20 MG TAB PO SCH (10:28)
[2019-03-12] MEDS: SODIUM CHLOR 0.9% PF (SALINE LOCK) 10ML VIAL/SYR IV SCH ×2 (10:28→22:26)
--- NOTE | 2019-03-12 11:30 | NUR ---
LEVOPHED GTT Levophed gtt increased to 8 mcg for a blood pressure of 88/41, will continue to titrate as tolerated by patient.
--- NOTE | 2019-03-12 11:43 | NUR ---
Nutrition Follow-up Notes Wt.: 42.7 kg Pt's in isolation room, on oxygen via nasal cannula, asleep, no signs of distress noted, earlier, currently on 2 gms Na diet with Ensure Enlive 1 carton TID, has inadequate PO of < 50% x 4 per RN doc d/t pt refused, per nursing. Est. Needs based on IBW (45 kg): 1150 kcal to 1350 kcal (25-30 kcal/kgIBW), 45 gms to 52 gms pro (1.0-1.3 gms/kgIBW d/t severe hypoalbuminemia). Will continue to monitor pertinent labs and reassess nutrient need prn Labs: GLU 124 H, BUN 28 H, ALB 2.2 L. Skin: Spencer scale 12, high risk, pt's medial coccyx discoloration per atomic spectroscopist.Pls refer to latest electrical tester's notes for further details re: tx plans. GI: Pt had 1x BM yesterday per atomic spectroscopist. PES: Partially resolved: Increased nutrient needs r/t current/chronic medical condition aeb 80% IBW, BMI 15.7 kg/m2, cachectic. intubated, sedated, severe hypoalbuminemia, NPO. Altered nutrition related lab values r/t current/chronic medical condition aeb hyperglycemia,hypokalemia, hypercapnia, hypochloremia, elev. AST, hyperbilirubinemia, hypocalcemia and severe hypoalbuminemia Will continue to monitor PO intake, skin status, pertinent labs and weight trend. F/u in 3 to 5 days. Rec.: 1.) If Albumin continues trending down, consider Prostat 1 pkt BID. 2.) Consider daily MVI with minerals and Asc acid 500 mgs BID. 3.) Consider Cardiac: 2 gms Na, Low Cholesterol, Low Fat diet. 4.) Continue close supervision and feeding assistance prn with meals. 5.) If pt's PO intake remains inadequate (<50%), consider appetite stimulant, if medically appropriate. 6.) Refer to RD for further nutrition educ. and weight monitoring upon discharge. 7.) Continue current plan of care.
--- NOTE | 2019-03-12 12:30 | NUR ---
BLOOD PRESSURE CUFF Patients systolic blood pressure continues to be in the 70-80's, blood pressure changed to the left leg.
--- NOTE | 2019-03-12 12:45 | NUR ---
LEVOPHED GTT Levophed gtt decreased down to 6mcg for a blood pressure of 132/72, will continue to titrate as tolerated by patient.
--- NOTE | 2019-03-12 13:45 | NUR ---
LEVOPHED GTT Levophed gtt decreased to 4 mcg for a blood pressure of 127/55, will continue to titrate as tolerated by patient.
--- NOTE | 2019-03-12 14:55 | NUR ---
ELIMINATION Patient requested to use bedpan, patient was able to void 150 concentrated yellow urine. Patient tolerated well.
--- NOTE | 2019-03-12 16:30 | NUR ---
LEVOPHED GTT Levophed gtt decreased to 2 mcg for a blood pressure of 119/53, will continue to titrate as tolerated by patient.
--- NOTE | 2019-03-12 18:00 | NUR ---
LEVOPHED GTT Levophed gtt turned off secondary to patient blood pressure 114/51, will continue to monitor blood pressure closely.
--- NOTE | 2019-03-12 19:45 | NUR ---
UP TO THE COMMODE. STEADY ON FEET. DRANK SOME PRUNE JUICE
--- NOTE | 2019-03-12 19:50 | NUR ---
CALLED DOTTIE THE CANDLEMAKER ON [employer] TO INQUIRE INTO THE CELL PHONE MISSING ON THIS PATIENT. SHE STATED: "I'LL CHECK INTO IT".
--- NOTE | 2019-03-12 20:00 | NUR ---
RETURNED TO PATIENT'S ROOM. SHE HAD USED HER FINGERS TO DIG STOOL OUT OF HERSELF. HAND AND FINGERNAIL CLEANED. RECTUM ELISABET CARE DONE. SHE HAD TAKEN OFF HER OPTIFOAM OVER HER STAGE 2 WOUND ON HER COCCYX. REPLACED THE DRESSING. STOOL WAS ON THE FLOOR AND IN THE COMMODE. STOOL ON THE BED PAD. SHE IS ASKING FOR AN ENEMA. ENCOURAGED HER TO GIVE THE PRUNE JUICE A CHANCE. SHE HAD DUG OUT A MODERATE AMOUNT OF BROWN PASTY STOOL. NO BLOOD NOTED. PATIENT CONTINUES TO BE OFF LEVOPHED. LUNGS CLEAR. 2LNP. ABDOMEN SOFT AND FLAT. NO PERIPHERAL EDEMA. ALL EXTREMITIES WARM. PULSES ARE PALPABLE. 100% V PACED.
--- NOTE | 2019-03-12 20:10 | NUR ---
ALERT.ORIENTED. SLEEPS READILY. SPEECH IS SLOW. HARD TO FIND WORDS SOMETIMES. DIFFICULTY EXPRESSING EXACTLY WHAT SHE NEEDS.
--- NOTE | 2019-03-12 22:00 | NUR ---
HEATED UP PRUNE JUICE. CALL IN TO HOSPITALIST FOR DOWNGRADE ORDERS. BP Q 15 HAS BEEN STABLE FOR 4 1/2 HOURS. SYSTOLIC 110 AND HIGHER. USING HER LEG FOR B/P.
--- NOTE | 2019-03-12 22:58 | NUR ---
Respiratory note: AT BEDSIDE TO ASSESS FOR PRN TX. TX NOT INDICATED AT THIS TIME. BS ARE CLEAR DIMINISHED T/O, POX 98% ON 2LPM NC, RT NAME AND PAGER ASSIGNMENT WRITTEN ON PTS ROOM BOARD.
--- NOTE | 2019-03-12 23:11 | NUR ---
DOWNGRADE ORDER TO TELE
[2019-03-13] VITALS (27 sets, daily range): BP systolic 98–128; BP diastolic 45–62
--- NOTE | 2019-03-13 | NUR ---
DO HAVE A DOWNGRADE ORDER FOR TELEMETRY, BED WILL BE AVAILABLE IN AM. VSS. DENIES PAIN, NAUSEA, DYSPNEA, OR HUNGER. 100% V PACED. TURNS SELF IN BED. ONLY IV IS THE RIGHT UPPER ARM PICC LINE.
--- NOTE | 2019-03-13 02:00 | NUR ---
VSS. SBP 125. 100% VPACED. LUNGS CLEAR. DENIES PAIN.
--- NOTE | 2019-03-13 04:00 | NUR ---
VSS. SYSTOLIC ABOVE 110 ALL NIGHT. WAITING FOR A BED ASST TO THE TELE FLOOR. DENIES PAIN, DYSPNEA OR NAUSEA. HEART RHYTHM IS ALWAYS 100% V PACED. NO EDEMA. LOW URINE OUTPUT. JUST DRANK PRUNE JUICE TONIGHT. 2 BMS. LAST WAS A MIX OF FORMED AND MUSHY BROWN STOOL. IV PATENT WITH CURRENT DRESSING.
[2019-03-13 04:24] LABS: Basophils # (auto) 0.1 uL; Basophils % (auto) 0.8 % (0.0-2.0); Eosinophils # (auto) 0.1 uL; Eosinophils % (auto) 0.8 % (0.0-7.0); Hematocrit 36.8 % (36.0-46.0); Hemoglobin 12.1 g/dL (12.2-16.2); Lymphocytes # (auto) 1.6 uL; Lymphocytes % (auto) 19.3 % (10.0-50.0); Mean Corpuscular Hemoglobin 30.8 pg (28.0-32.0); Mean Corpuscular Hgb Conc. 32.8 g/dL (32.0-36.0); Mean Corpuscular Volume 94.1 fL (80.0-100.0); Monocytes # (auto) 0.9 uL; Monocytes % (auto) 10.6 % (0.0-12.0); Neutrophils # (auto) 5.6 uL; Neutrophils % (auto) 68.5 % (37.0-80.0); Nucleated Red Blood Cells % 0.7 %; Platelet Count (auto) 242 10^3/uL (140-450); Red Blood Cells 3.91 10^6/uL (4.0-5.20); Red Cell Distribution Width 17.6 % (11.8-14.3); White Blood Cell 8.2 10^3/uL (4.4-10.8)
[2019-03-13 04:37] LABS: Calcium 8.5 mg/dL (8.5-10.1)
--- NOTE | 2019-03-13 05:27 | NUR ---
REPORT CALLED TO GEO SHANKAR. PATIENT WILL BE TRANSFERRED TO ROOM 298B PER SPECIAL BED. TELEMETRY BOX ON.
--- NOTE | 2019-03-13 05:53 | NUR ---
PATIENT IN ROOM. VONNIE MET US THERE. INFORMED HER THAT THE CELL PHONE IS MISSING.
--- NOTE | 2019-03-13 06:11 | NUR ---
RECEIVED PATIENT VIA BED WITH AI MATTRESS, ALERT AND ORIENTED, MOVES ALL EXTREMITIES, ON 2L O2, VITAL SIGNS ARE STABLE, DENIES ANY PAIN, SACRUM WITH OPTIFOAM, PRESSURE ULCER NOTED, REPOSITIONED TO LEFT SIDE AND EDUCATION PROVIDED. CALL ECHEVER[place]A WITHIN REACH. ORIENTED TO UNIT ROUTINES.
[2019-03-13] MEDS: Ensure Enlive Strawberry 8oz Bottle PO SCH ×2 (08:00→12:00)
[2019-03-13] MEDS: Pro-Stat SF 30ml Vanilla PO SCH (08:00)
--- NOTE | 2019-03-13 08:00 | NUR ---
RECEIVED PATIENT ALERT AND ORIENTED, FULL CODE, DIMINISHED LS IN BILATERAL LUNG LOBES, RR=18 SAT=98%, WITH O2 2L NC, DEEP BREATHING AND COUGHING AND ENCOURAGED, DEMONSTRATED AND VERBALIZED UNDERSTANDING WELL, PACING R=78 ON TELE MONITOR, DENIED CHEST PAIN OR DISCOMFORT AT THIS MOMENT, ABDOMEN FLAT AND SOFT WITH ACTIVE BS, LAT BM THIS MORNING REPORTED, SACRUM STAGE 2 PRESSURE WOUND CLEANED DRIED AND APPLIED Z GILBERTO CREAM, APPLIED OPTI FOAM DRESSING, TOLERATED WELL, GENERAL SKIN DRY AND INTACT, POSITION CHANGE WITH ASSISTANCE ENCOURAGED, DEMONSTRATED WELL AND TOLERATED WELL, RADIAL AND PEDAL PULSES PALPABLE, CAP REFILL<3 SECONDS, RESTING ON BED, DENIED PAIN, HEAD OF BED ELEVATED, BED ON LOW POSITION, RAILS UP X2, CALL LIGHT ON REACH, PENDING SS PROCESS, WILL CONTINUE MONITORING.
[2019-03-13] MEDS ORDERED: FUROSEMIDE 40 MG TAB PO SCH (10:00)
[2019-03-13] MEDS: CARVEDILOL 3.125 MG TAB PO SCH (10:00)
[2019-03-13] MEDS ORDERED: POTASSIUM CHL 10 Meq TABLET PO SCH (10:00)
--- NOTE | 2019-03-13 10:00 | NUR ---
BP=75/41 P=71 RR=18 SAT=98, PUT ON [place], HOLD AM BP MEDICATION, PATIENT ALERT AND ORIENTED, NOT IN DISTRESS AND DENIED PAIN, DR DO WAS CALLED AND NOTIFIED, NO NEW ORDER GIVEN, PENDING PLEURX CATHETER INSERTION, RADIOLOGY WAS CALLED FOR FOLLOW UP AND NOTIFIED.
--- NOTE | 2019-03-13 10:00 | NUR ---
BP=75/41 P=71 RR=18 SAT=98, PUT ON [place], HOLD AM BP MEDICATION, DR DO WAS CALLED AND NOTIFIED, NO NEW ORDER GIVEN, PENDING PLEURX CATHETER INSERTION, RADIOLOGY WAS CALLED FOR FOLLOW UP AND NOTIFIED.
[2019-03-13] MEDS: SODIUM CHLOR 0.9% PF (SALINE LOCK) 10ML VIAL/SYR IV SCH (10:37)
[2019-03-13] MEDS: SACUBITRIL-VALSARTAN 24mg/26mg TAB PO SCH (10:38)
[2019-03-13] MEDS: FAMOTIDINE 20 MG TAB PO SCH (10:40)
--- NOTE | 2019-03-13 12:10 | NUR ---
DR KIMBALL AT BEDSIDE FOR PLACEMENT OF A RIGHT SIDE PLEURX CHEST TUBE CATHETER. VS 96/--18-96%. TIME OUT CALLED AND PROCEDURE STARTED. 1220: 101/--18-98%. 1235: 90/60-70-16-98%. CATHETER HOOKED UP TO SUCTION BOTTLE AND CHEST DRAINED OF 700 ML OF PLEURAL FLUID. TUBE THEN SUTURED IN PLACED AND DRESSED BY DR KIMBALL. PT C/O PAIN. CHARGE NURSE ANAMARIA LILLY. WILL MEDICATE. POST CXR DONE.
[2019-03-13] MEDS ORDERED: HYDROcodone-ACET 5/325MG TAB PO PRN (12:30)
--- NOTE | 2019-03-13 13:00 | NUR ---
CONSENT WAS SIGNED, PLEURX CATH INSERTED, TOLERATED WELL, POST PROCEDURE VS T=98.6 RR=18 RQI=267% BP=75/40 P=72, DR DO AWARE, PENDING ALBUMIN IV, WILL CONTINUE MONITORING.
[2019-03-13] MEDS: ALBUMIN 25% 100 ML IV SCH ×2 (13:53→18:27)
--- NOTE | 2019-03-13 16:55 | NUR ---
re-assessment I spoke with patient and she informed me her house is not ready yet. I informed patient she will be discharged today. patient has agreed to placement with [facility] if they can keep her in the area. Per Kye she has secured a bed at [facility] room 43b. Dr Wellington put in discharge to [facility] on [facility]. Per Kye equipment will be delivered at 5pm and General transportation will transport patient between 5pm and 6pm today post discharge. Patient verbalized understanding and agreed to discharge plan to [facility] on [facility]. Leighton GUARDADO has been notified. Addendum: 03/13/19 at 1703 by Luann FERRER Amended: Links added.
--- NOTE | 2019-03-13 17:00 | NUR ---
PENDING D/C TO [facility] WITH [facility] REPORTED.
--- NOTE | 2019-03-13 18:15 | NUR ---
SISTER EDSON WAS CALLED ON [phone] AND NOTIFIED OF PENDING TRANSFER TO [facility], VERBALIZED UNDERSTANDING, [facility] WAS CALLED TO GIVE REPORT TO THE RECEIVING THE PATIENT IN [place] 43B ON [phone], NO ONE RESPONDING THE CALL, WILL CALL BACK LATER.
--- NOTE | 2019-03-13 18:40 | NUR ---
D/C INFORMATION ENVELOP PROVIDED, D/C PICC LINE FROM TR. UPPER ARM, D/C TELE MONITOR, TOLERATED WELL, WOUND EVALUATION PICTURE WAS TAKEN, TOLERATED WELL, NOT IN DISTRESS, VS T=98.2 RR=18 SAT=98% WITH O2 2L NC, P=74 BP=89/47, DENIED PAIN, DENIED DIZZINESS OR UNUSUAL WEAKNESS, RT, LATERAL CHEST PLEURX CATHETER SITE COVERED WITH DRY AND INTACT DRESSING, C/O LOOSING CELL PHONE LOOK IN THE ROOM AND BED UNABLE TO FIND, LAST TIME USED THE CELL PHONE IN ICU REPORTED, D/C ON [facility] BY [facility], TOOK ALL BELONGINGS AND LEFT NOTHING BEHIND.
== END 2019-03-13 18:00 | disposition hospice, inpatient (51) | DRG 720 ==
LOC: EDBD 01:55 → EDUNIT# 02:05 → EDBD 02:05 → ER 02:05 → TELE 02:06 → ICU WEST 06:45 → DOU IN ICU 02-27 05:19 → TELE-EAST 03-01 15:03 → ICU WEST 03-12 05:15 → TELE-WESTW 03-13 05:43
PROVIDERS: ADMIT Nurse Practitioner Acute Care; ATTEND Internal Medicine
PROC: 5A1945Z Respiratory Ventilation, 24-96 Consecutive Hours (ICD-10-PCS; 2019-02-23)
PROC: 0W993ZZ Drainage of Right Pleural Cavity, Percutaneous Approach (ICD-10-PCS; 2019-02-23)
PROC: 02HV33Z Insertion of Infusion Device into Superior Vena Cava, Percutaneous Approach (ICD-10-PCS; 2019-02-23)
PROC: 5A09357 Assistance with Respiratory Ventilation, Less than 24 Consecutive Hours, Continuous Positive Airway Pressure (ICD-10-PCS; 2019-02-23)
PROC: 0W993ZZ Drainage of Right Pleural Cavity, Percutaneous Approach (ICD-10-PCS; principal; 2019-02-25)
PROC: 0W9930Z Drainage of Right Pleural Cavity with Drainage Device, Percutaneous Approach (ICD-10-PCS; 2019-03-13)
DX: A41.9 Sepsis, unspecified organism (principal); I21.A1 Myocardial infarction type 2; N17.0 Acute kidney failure with tubular necrosis; E41 Nutritional marasmus; J96.21 Acute and chronic respiratory failure with hypoxia; R65.21 Severe sepsis with septic shock; I44.2 Atrioventricular block, complete; N18.3 Chronic kidney disease, stage 3 (moderate); J15.6 Pneumonia due to other Gram-negative bacteria; E43 Unspecified severe protein-calorie malnutrition; I42.9 Cardiomyopathy, unspecified; J44.1 Chronic obstructive pulmonary disease with (acute) exacerbation; I49.5 Sick sinus syndrome; I50.43 Acute on chronic combined systolic (congestive) and diastolic (congestive) heart failure; Z22.322 Carrier or suspected carrier of Methicillin resistant Staphylococcus aureus; Z95.0 Presence of cardiac pacemaker; E04.2 Nontoxic multinodular goiter; E87.4 Mixed disorder of acid-base balance; E87.6 Hypokalemia; F17.200 Nicotine dependence, unspecified, uncomplicated; J44.0 Chronic obstructive pulmonary disease with (acute) lower respiratory infection; J91.8 Pleural effusion in other conditions classified elsewhere; J96.22 Acute and chronic respiratory failure with hypercapnia; Z51.5 Encounter for palliative care; I13.0 Hypertensive heart and chronic kidney disease with heart failure and stage 1 through stage 4 chronic kidney disease, or unspecified chronic kidney disease; Z74.01 Bed confinement status; Z82.49 Family history of ischemic heart disease and other diseases of the circulatory system; Z82.5 Family history of asthma and other chronic lower respiratory diseases; Z85.71 Personal history of Hodgkin lymphoma; Z85.72 Personal history of non-Hodgkin lymphomas; Z86.711 Personal history of pulmonary embolism; Z91.410 Personal history of adult physical and sexual abuse; Z92.21 Personal history of antineoplastic chemotherapy; Z92.3 Personal history of irradiation; Z68.1 Body mass index [BMI] 19.9 or less, adult; Z79.899 Other long term (current) drug therapy
CPT/HCPCS: 10022; 32555; 36415; 36569; 36600; 71045; 71250; 74176; 76705; 76942; 80048; 80053; 80061; 80074; 80202; 80307; 81001; 82805; 82962; 83036; 83605; 83615; 83735; 83880; 83986; 84132; 84443; 84484; 85025; 85610; 85730; 87040; 87070; 87076; 87081; 87205; 87804; 89051; 93005; 93306; 94002; 94003; 94640; 94660; 96361; 96365; 96367; 96375; 97116; 97163; 97530; A4618; G0378; J0330; J0696; J2405; J2543; J2704; J3480; J3490; J7060; P9047